=== PATIENT | female | born 1945 | race Caucasian/White ===

== ENCOUNTER 2019-04-12 02:41 | Outpatient (CLI) | payer MEDICARE, SELFPAY ==
[2019-04-12 08:35] LABS: HCT 37.7 % (36.0-46.0); HGB 12.9 g/dL (12.0-15.5); Mean Corp. HGB Concentration 34.2 g/dL (32.0-36.0); Mean Corpuscular Hemoglobin 29.4 pg (27.0-33.0); Mean Corpuscular Volume 85.9 fL (80-95); Mean Platelet Volume 11.1 fL (8.0-11.0); Platelet Count 221 x1000/uL (130-400); RBC 4.39 m/cumm (4.00-5.20); RBC Distribution Width 14.1 % (11.7-14.6)
[2019-04-12 09:53] LABS: ALT 20 U/L (14-59); AST 17 U/L (15-37); Albumin 3.5 g/dL (3.4-5.0); Alkaline Phosphatase 66 U/L (46-116); Anion Gap 7.1 mmol/L (3-11); BUN 19 mg/dL (7-18); Bilirubin, Total 0.5 mg/dL (0.2-1.0); CO2 32.9 mmol/L (21.0-32.0); CREATININE 0.82 mg/dL (0.55-1.02); Calculated LDL 108 mg/dL; Chloride 101 mmol/L (98-107); Cholesterol 197 mg/dL (50-200); Glucose 96 mg/dL (70-100); HDL Cholesterol 75 mg/dL (40-60); Potassium 3.8 mmol/L (3.5-5.1); Sodium 141 mmol/L (136-145); TSH (W/Ref FT4) 2.68 uIU/mL (0.36-3.74); Total Protein 6.9 g/dL (6.4-8.2); Triglyceride 71 mg/dL (30-150)
[2019-04-12 10:02] LABS: Vitamin D 25 Total 97.6 ng/ml (30-100)
== END 2019-04-12 03:01 ==
PROVIDERS: PCP Student in an Organized Health Care Education/Training Program; Visit Provider Student in an Organized Health Care Education/Training Program
DX: R53.83 Other fatigue (principal); Z86.2 Personal history of diseases of the blood and blood-forming organs and certain disorders involving the immune mechanism; I10 Essential (primary) hypertension; M85.80 Other specified disorders of bone density and structure, unspecified site; M25.551 Pain in right hip; S42.309A Unspecified fracture of shaft of humerus, unspecified arm, initial encounter for closed fracture; E03.9 Hypothyroidism, unspecified; Z13.220 Encounter for screening for lipoid disorders
CPT/HCPCS: 36415; 80053; 80061; 82306; 85027; 84443

== ENCOUNTER 2019-05-26 00:38 | Outpatient (CLI) | payer MEDICARE, SELFPAY ==
--- NOTE | 2019-05-26 07:12 | DI.US_ITS ---
APPROVED REPORT EXAM: Comprehensive 2D, Doppler, and color-flow Echocardiogram Patient Location: Out-Patient Adz Worker: Nikole Bolanso [facility] ([facility]) Rhythm: Bradycardia Indications: edema r06.9, palpitations r00.2 hypertension i10 Conclusion Left Ventricle : The left ventricle is normal size. The left ventricular systolic function is normal. Mild left ventricular hypertrophy There is normal LV segmental wall motion. LVEF is 60-65%. There is grade 2 diastolic dysfunction. Right Ventricle : The right ventricle appears top normal size. The right ventricular systolic functio n is normal. Atria : The left atrium size is top normal to mildly dialted. The right atrium size is normal. Aortic Valve : Aortic valve is trileaflet. The Aortic valve is sclerotic with focal thickening. Trvia l aortic regurgitation by color doppler. sclerosis without stenosis Mitral Valve : Mitral valve leaflets are mildly thickened. Mild mitral regurgitation. No evidence of mitral valve stenosis. Tricuspid Valve : Tricuspid valve leaflets are mildly thickened but open well. Mild tricuspid regurgi tation. Great Vessels : The aortic root is normal in size. IVC is normal in size and collapses >50% with insp iration. Estimated RVSP is 32-36 mmHg. There is no prior echocardiogram available for comparison. Wall motion Left Ventricle The left ventricle is normal size. The left ventricular systolic function is normal. Mild left ventri cular hypertrophy There is normal LV segmental wall motion. There is grade 2 diastolic dysfunction. L VEF is 60-65%. Right Ventricle The right ventricle appears top normal size. The right ventricular systolic function is normal. Atria The left atrium size is mildly dialted. The right atrium size is normal. Aortic Valve Aortic valve is trileaflet. The Aortic valve is sclerotic with focal thickening. sclerosis without st enosis Trvial aortic regurgitation by color doppler. Mitral Valve Mitral valve leaflets are mildly thickened. No evidence of mitral valve stenosis. Mild mitral regurgi tation. Tricuspid Valve Tricuspid valve leaflets are mildly thickened but open well. Mild tricuspid regurgitation. Great Vessels The aortic root is normal in size. IVC is normal in size and collapses >50% with inspiration. Estimat ed RVSP is 32-36 mmHg. Pericardium There is no pericardial effusion. 2D Dimensions IVSd 1.30 cm F: 0.6-1.0 LV EDV A2C 73.60 mL PWd 1.15 cm F: 0.6 - 1.0 LV EDV A4C 84.60 mL LVDd 4.25 cm F: 3.8 - 5.2 LA Volume Index A2C 36.89 mL/m2 LVDs 2.45 cm F: 2.2 - 3.5 LA Volume Index A4C 30.37 mL/m2 Aortic Root 2.70 cm F: 2.7 - 3.3 LA Volume Index Biplane 36.65 mL/m2 RA Area A4C 14.46 cm2 LA Area A4C 16.55 cm2 LVOT 1.90 cm (M/F) 1.5-2.5 LA Area A2C 19.98 cm2 Ascending Aorta 3.09 cm F: 2.3 - 3.1 EF AP4 66.19 % LVEF (Teich) 72.66 % EF AP2 71.88 % LVEF (Horta's) 68.42 % F: 54 - 74 EF BP 68.42 % LV Volume 62.18 mL F: 46 - 106 LV Volume Index 35.94 mL/m2 F: 29 - 61 FS 41.40 % LV Diastology E/A Ratio 1.2 MED E' 0.05 (>0.07 m/s) LV E/e MED 21.25 (<14) LAT E' 0.06 (>0.1 m/s) LV E/e LAT 15.60 (<14) Pulm Vein s 0.41 m/s PV S/D Ratio 0.78 Pulm Vein d 0.52 m/s Pulm Vein a 0.31 m/s Aortic Valve LVOT Area 2.94 cm2 LVOT Peak Olvin. 0.80 m/s LVOT Mean Olvin. 0.55 m/s LVOT Peak Gr. 2.80 mmHg LATHA Vmax Index 0.95 cm2/m2 LVOT Mean Gr. 1.35 mmHg LVOT VTI 0.20 m LATHA Mean Olvin. Index 0.79 cm2/m2 AoV Peak Olvin. 1.50 (0.5-1.3 m/s) AoV Mean Olvin. 1.17 m/s AO Peak GR. 8.99 mmHg AO Mean GR. 5.77 (<5 mmHg) VTI Ratio 0.58 LATHA (VTI) 1.70 (2.5-4.5 cm2) LATHA (VTI) Index 0.98 cm/m2 Mitral Valve MV E Max Olvin. 0.98 (0.4-1.3 m/s) MV A Velocity 0.80 (0.4-1.3 m/s) E/A Ratio 1.16 MV Decel. Time 170.75 (160-240 msec) MV PHT 49.53 msec MVA PHT 4.40 cm2 Tricuspid Valve TR P. Velocity 2.85 m/s TV Regurg Vmax 2.85 m/s RAP Estimate 3.00 mmHg RVSP 35.50 mmHg TR P. Gradient 32.50 mmHg
== END 2019-05-26 00:58 ==
PROVIDERS: PCP Student in an Organized Health Care Education/Training Program; Visit Provider Student in an Organized Health Care Education/Training Program
DX: R00.2 Palpitations (principal); I10 Essential (primary) hypertension; R60.0 Localized edema; I51.7 Cardiomegaly; I50.1 Left ventricular failure, unspecified
CPT/HCPCS: 93306

== ENCOUNTER 2020-01-05 04:19 | Outpatient (CLI) | payer MEDICARE, SELFPAY ==
[2020-01-05 07:48] LABS: HCT 38.9 % (36.0-46.0); HGB 12.7 g/dL (12.0-15.5); Mean Corp. HGB Concentration 32.6 g/dL (32.0-36.0); Mean Corpuscular Hemoglobin 28.2 pg (27.0-33.0); Mean Corpuscular Volume 86.3 fL (80-95); Mean Platelet Volume 10.9 fL (8.0-11.0); Platelet Count 220 x1000/uL (130-400); RBC 4.51 m/cumm (4.00-5.20); RBC Distribution Width 14.6 % (11.7-14.6); White Blood Cell Count 5.82 k/cumm (4.4-10.8)
[2020-01-05 08:55] LABS: ALT 26 U/L (14-59); AST 19 U/L (15-37); Albumin 3.5 g/dL (3.4-5.0); Alkaline Phosphatase 54 U/L (46-116); Anion Gap 6.6 mmol/L (3-11); BUN 21 mg/dL (7-18); Bilirubin, Total 0.4 mg/dL (0.2-1.0); CO2 32.4 mmol/L (21.0-32.0); CREATININE 0.89 mg/dL (0.55-1.02); Calcium 8.9 mg/dL (8.5-10.1); Calculated LDL 129 mg/dL (<100); Chloride 101 mmol/L (98-107); Cholesterol 212 mg/dL (<200); Glucose 94 mg/dL (74-106); HDL Cholesterol 74 mg/dL (40-60); Potassium 3.6 mmol/L (3.5-5.1); Sodium 140 mmol/L (136-145); Total Protein 6.6 g/dL (6.4-8.2); Triglyceride 48 mg/dL (<150)
[2020-01-05 09:12] LABS: TSH (W/Ref FT4) 3.35 uIU/mL (0.36-3.74)
== END 2020-01-05 04:39 ==
PROVIDERS: PCP Student in an Organized Health Care Education/Training Program; Visit Provider Student in an Organized Health Care Education/Training Program
DX: I10 Essential (primary) hypertension (principal); E03.9 Hypothyroidism, unspecified; R09.89 Other specified symptoms and signs involving the circulatory and respiratory systems
CPT/HCPCS: 36415; 80053; 80061; 85027; 84443

== ENCOUNTER 2020-01-07 00:44 | Outpatient (CLI) | payer MEDICARE, SELFPAY ==
--- NOTE | 2020-01-07 07:00 | DI.US_ITS ---
EXAM: US CAROTID CLINICAL HISTORY: HX Bruit, r/o stenosis, RT CAROTID BRUIT, R09.89. TECHNIQUE: Ultrasound carotids performed using grayscale, color-flow, and spectral Doppler imaging. COMPARISON: No exams were available for comparison FINDINGS: RIGHT CAROTID ARTERY: Plaque: Minimal calcific plaque in the right bulb. Velocity elevation: None. LEFT CAROTID ARTERY: Plaque: Minimal. Velocity elevation: None. VERTEBRAL ARTERIES: Antegrade flow. Measurements: R Bulb: 50.1cm/s PS / 11.6cm/s ED R CCA: 81cm/s PS / 14.8cm/s ED R ECA: 79.1cm/s PS / 9.6cm/s ED R ICA Prox: 66.8cm/s PS /13.5cm/s ED R ICA Mid: 70.1cm/s PS / 18cm/s ED R ICA Distal: 78.4cm/s PS /19.3cm/s ED R Vert: 38.4cm/s PS / 8.9cm/s ED R SVR: 0.97 R DVR: 1.3 L Bulb: 59.4cm/s PS /10cm/s ED L CCA: 76.8cm/s PS / 15.8cm/s ED L ECA: 84.7cm/s PS /14.7cm/s ED L ICA Prox:73.6cm/s PS / 13.1cm/s ED L ICA Mid: 73.6cm/sPS / 18.9cm/s ED L ICA Distal: 79.4cm/s PS / 18.9cm/s ED L Vert: 44.7cm/s PS / 11cm/s ED L SVR: 1.03 L DVR: 1.2 Note is made of a 1.4 x 0.9 x 1.3 cm nodule in the left lobe of the thyroid gland. Nonemergent thyro id ultrasound may be obtained for further evaluation. IMPRESSION: No evidence for hemodynamically significant carotid stenosis. Criteria for Carotid Stenosis: Normal: ICA PSV <125 cm/s no plaque or intimal thickening is visible. <50% stenosis: ICA PSV <125 cm/s and plaque or intimal thickening is visible. 50-69% stenosis: ICA PSV is 125-250 cm/s and plaque is visible. >70% stenosis to near occlusion: ICA PSV >250 cm/s with visible plaque and luminal narrowing. DATA REPOSITORY:
== END 2020-01-07 01:04 ==
PROVIDERS: PCP Student in an Organized Health Care Education/Training Program; Visit Provider Student in an Organized Health Care Education/Training Program
DX: R09.89 Other specified symptoms and signs involving the circulatory and respiratory systems (principal); E04.1 Nontoxic single thyroid nodule
CPT/HCPCS: 93880

== ENCOUNTER 2020-02-10 01:18 | Outpatient (CLI) | payer MEDICARE, SELFPAY ==
--- NOTE | 2020-02-10 12:28 | DI.MAMMO_ITS ---
EXAM: MAMMO SCREENING CLINICAL HISTORY: screening,Z12.39 TECHNIQUE: Mammograms were interpreted according to the usual protocol including computer analysis w [employer] CAD system, tomosynthesis and C-view imaging. COMPARISON: 2010 through 2012. FINDINGS: The breasts are composed of heterogeneously dense fibroglandular densities, Breast Density category C . No suspicious masses or suspicious microcalcifications are seen. There is scarring related to previo us surgery. Vascular calcifications are seen. No skin thickening or abnormal axillary lymph nodes are seen. There has been no significant change from prior exams. IMPRESSION: BI-RADS Category 2 - Benign Findings Yearly screening mammography is recommended. Breast Density Category C, heterogeneously dense tissue which decreases the sensitivity of the mammog rudy. The mammogram demonstrates the patient's breast tissue is dense. Dense breast tissue is very common a nd is not abnormal but dense breast tissue can make it harder to find cancer on a mammogram. Also, de nse breast tissue may increase breast cancer risk. This information about the result of the mammogram report was provided to the patient to raise their awareness. Use this report when you speak with the patient about their risks for breast cancer, which includes their family history. At that time, you may recommend additional screening tests (Ultrasound or MRI) as they might be useful based on their r isk. A negative radiographic report should not delay biopsy if a dominant or clinically suspicious mass is present. Up to ten percent of cancers are not identified on mammography. A negative report may reinforce clinical impression. Adenosis and dense breasts may obscure an underlying neoplasm. False positive reports average 6 to 10%.
== END 2020-02-10 01:38 ==
PROVIDERS: PCP Student in an Organized Health Care Education/Training Program; Visit Provider Student in an Organized Health Care Education/Training Program
DX: Z12.31 Encounter for screening mammogram for malignant neoplasm of breast (principal); R92.1 Mammographic calcification found on diagnostic imaging of breast; R92.2 Inconclusive mammogram
CPT/HCPCS: 77063; 77067

== ENCOUNTER → 2020-05-23 09:39 | Outpatient (BNVA) | payer MEDICARE, SELFPAY | PROVIDERS: PCP Student in an Organized Health Care Education/Training Program; Referring Provider Student in an Organized Health Care Education/Training Program; Visit Provider Psychiatry & Neurology Neurology | DX: R26.89 Other abnormalities of gait and mobility (principal); I10 Essential (primary) hypertension | CPT/HCPCS: 99203 ==

== ENCOUNTER → 2020-05-25 13:39 | Outpatient (BNVA) | payer MEDICARE, SELFPAY | PROVIDERS: PCP Student in an Organized Health Care Education/Training Program; Referring Provider Student in an Organized Health Care Education/Training Program; Visit Provider Internal Medicine Cardiovascular Disease | DX: R00.1 Bradycardia, unspecified (principal); E78.5 Hyperlipidemia, unspecified; I10 Essential (primary) hypertension | CPT/HCPCS: 99203; 99214 ==

== ENCOUNTER → 2020-06-09 12:27 | Outpatient (BNVA) | payer MEDICARE, SELFPAY | PROVIDERS: PCP Student in an Organized Health Care Education/Training Program; Referring Provider Student in an Organized Health Care Education/Training Program; Visit Provider Internal Medicine Cardiovascular Disease | DX: I10 Essential (primary) hypertension (principal); Z79.899 Other long term (current) drug therapy | CPT/HCPCS: 99214; 99213 ==

== ENCOUNTER → 2020-07-21 12:34 | Outpatient (BNVA) | payer MEDICARE, SELFPAY | PROVIDERS: PCP Student in an Organized Health Care Education/Training Program; Referring Provider Student in an Organized Health Care Education/Training Program; Visit Provider Internal Medicine Cardiovascular Disease | DX: I10 Essential (primary) hypertension (principal) | CPT/HCPCS: 99213 ==

== ENCOUNTER 2020-10-19 03:15 | Outpatient (CLI) | payer MEDICARE, OTHER, SELFPAY ==
[2020-10-19 10:33] LABS: ALT 26 U/L (14-59); AST 17 U/L (15-37); Albumin 3.8 g/dL (3.4-5.0); Alkaline Phosphatase 89 U/L (46-116); Anion Gap 6.7 mmol/L (3-11); BUN 17 mg/dL (7-18); Bilirubin, Total 0.5 mg/dL (0.2-1.0); CO2 31.3 mmol/L (21.0-32.0); CREATININE 0.9 mg/dL (0.55-1.02); Calcium 8.7 mg/dL (8.5-10.1); Calculated LDL 144 mg/dL (<100); Chloride 106 mmol/L (98-107); Cholesterol 239 mg/dL (<200); Glucose 95 mg/dL (74-106); HDL Cholesterol 84 mg/dL (40-60); Sodium 144 mmol/L (136-145); Total Protein 7.2 g/dL (6.4-8.2); Triglyceride 56 mg/dL (<150)
== END 2020-10-19 03:16 | disposition home or self-care (01) ==
LOC: LBO 03:15
PROVIDERS: PCP Student in an Organized Health Care Education/Training Program; Visit Provider Student in an Organized Health Care Education/Training Program
DX: R06.00 Dyspnea, unspecified (principal); I10 Essential (primary) hypertension; E78.5 Hyperlipidemia, unspecified
CPT/HCPCS: 36415; 80053; 80061; 84443; 99213

== ENCOUNTER 2020-10-24 00:57 | Outpatient (CLI) | payer MEDICARE, OTHER, SELFPAY ==
--- NOTE | 2020-10-24 07:15 | DI.NM_ITS ---
APPROVED REPORT Exam: Exercise Treadmill Patient Location: Out-Patient Room/Bed: Stress Nurse: Blaire Salas RN Ordering Provider:AURY WETZEL, Contact Number: BMI: 29.99 Baseline Rhythm: Sinus Bradycardia Indications: Dyspnea on exertion Medical History Medical History: LIN, HTN, HLD, Hypothyroidism, Osteopenia, R carotid bruit, SPENCE, Bradycardia Cardiac Medications: Metoprolol succinate, Magnesium, Lisinopril, Furosemide, Aspirin, Amlodipine Allergies: No known drug allergies Cardiac Risk Factors: FHX of CAD, HTN, Hyperlipidemia Previous Cardiac Procedures: None Pretest Chest Pain Characteristics: No chest pain Exercise History: Physically active Physical Disabilities: None Lung Sounds: Clear to auscultation Heart Sounds: Regular Stress Test Details Test: Exercise stress testing was performed using a Ramesh protocol. Nuclear Acquisition: Rest Tc-99m/Stress Tc-99m 1 day Rest Isotope: Tc-99m Sestamibi. Dose: 11.1 Date: 10/24/20 Injection Time: 1130 Stress Isotope: Tc-99m Sestamibi. Dose: 36.0 Date: 10/24/20 Injection Time: 1330 HR Resting HR Supine: 55 bpm Max Heart Rate (APMHR): 145.684970 bpm Resting HR Standin bpm Target HR (85% APMHR): 123.011243 bpm Max HR Achieved: 136 bpm % of APMHR: 93.79 Recovery HR: 74 bpm HR response to stress: Normal HR response to stress Comment: Beta jo ann not held. BP Resting BP Supine: 130/80 mmHg Resting BP Standin/76 mmHg Max BP: 186/74 mmHg Recovery BP: 150/78 mmHg BP response to stress: Normal blood pressure response to stress. ECG Resting ECG: Sinus Bradycardia Ectopy: PVCs Stress ECG: Sinus Tachycardia ST Change: No significant ST segment changes noted Arrhythmia: multifocal PVCs, PVC couplets Recovery ECG: Sinus Rhythm Recovery ST Change: No significant ST segment changes noted, , No significant ST segment changes note d Recovery Arrhythmia: PACs, multifocal PVCs Clinical Reason for Termination: Fatigue Stress Symptoms: Leg Fatigue Exercise duration: 9 min0 sec Highest Stage Reached: Stage 3: 3.4 mph at 14% grade. Exercise capacity: 10.16 METs Rate Pressure Product: [id number] Stress ECG Conclusion 1. The resting electrocardiogram was normal 2. Patient exercised on the Ramesh protocol and completed stage III, a workload of 10.16 METS limited by leg fatigue 3. Heart rate and blood pressure response to exercise. The patient achieved 93% of predicted heart r ate for age 4. Echocardiographically there was no evidence of myocardial ischemia 5. PVCs and PACs were noted Stress Test Summary STAGE Time (mins) Speed (mph) Grade (%) HR BP SYMPTOMS METS Supine 55 130/80 Standing 64 128/76 1 3 1.7 10 103 158/80 4.6 2 6 2.5 12 115 174/76 7 3 9 3.4 14 133 10.2 1 min recovery 111 186/74 3 min recovery 77 172/78 6 min recovery 74 150/78 MPI Conclusion Normal myocardial perfusion without evidence of ischemia or prior infarction EF 64% Radiologist Interpretation Radiologist agrees with Transit Survey Worker's Interpretation. Radiologist Interpretation by: Vida Savage MD Interpretation Date/Time: 10/27/2020 11:57:51
== END 2020-10-24 01:17 ==
PROVIDERS: PCP Student in an Organized Health Care Education/Training Program; Visit Provider Internal Medicine Cardiovascular Disease
DX: R06.09 Other forms of dyspnea (principal); Z82.49 Family history of ischemic heart disease and other diseases of the circulatory system; I10 Essential (primary) hypertension; E78.5 Hyperlipidemia, unspecified; I49.3 Ventricular premature depolarization; I49.1 Atrial premature depolarization
CPT/HCPCS: 78452; 93016; 93018; 93017

== ENCOUNTER → 2020-10-26 13:43 | Outpatient (BNVA) | payer MEDICARE, OTHER, SELFPAY | PROVIDERS: PCP Student in an Organized Health Care Education/Training Program; Referring Provider Student in an Organized Health Care Education/Training Program; Visit Provider Internal Medicine Cardiovascular Disease | DX: R06.09 Other forms of dyspnea (principal); E78.5 Hyperlipidemia, unspecified; I10 Essential (primary) hypertension | CPT/HCPCS: 99442; 99213 ==

== ENCOUNTER 2021-03-22 03:02 | Outpatient (CLI) | payer MEDICARE, OTHER, SELFPAY ==
[2021-03-22 10:26] LABS: Anion Gap 5.5 mmol/L (3-11); BUN 19 mg/dL (7-18); CO2 30.5 mmol/L (21.0-32.0); CREATININE 0.8 mg/dL (0.55-1.02); Calcium 8.7 mg/dL (8.5-10.1); Chloride 107 mmol/L (98-107); Glucose 101 mg/dL (74-106); Sodium 143 mmol/L (136-145); TSH (W/Ref FT4) 0.33 uIU/mL (0.36-3.74)
[2021-03-22 10:46] LABS: FREE T4 1.33 ng/dL (0.76-1.46)
== END 2021-03-22 03:03 | disposition home or self-care (01) ==
LOC: LBO 03:02
PROVIDERS: PCP Student in an Organized Health Care Education/Training Program; Visit Provider Student in an Organized Health Care Education/Training Program
DX: E03.9 Hypothyroidism, unspecified; E87.8 Other disorders of electrolyte and fluid balance, not elsewhere classified; G47.62 Sleep related leg cramps
CPT/HCPCS: 36415; 80048; 84439; 84443

== ENCOUNTER 2021-04-16 10:51 | Outpatient (CLI) | payer MEDICARE, OTHER, SELFPAY ==
--- NOTE | 2021-04-16 10:15 | DI.RAD_ITS ---
Exam(s) XR KNEE RT 3V AP,LAT,MOISES EXAM: XR KNEE RT 3V AP,LAT,MOISES CLINICAL HISTORY: RIGHT KNEE PAIN TECHNIQUE: COMPARISON: CR RIGHT KNEE 3 VIEWS from 01/11/2009 FINDINGS: Three views were obtained. There is severe narrowing of the medial tibiofemoral cartilaginous joint space. There is subchondral sclerosis and marginal osteophyte formation of the adjacent bones. Othe rwise the joints of the knee appear fairly well maintained with slight marginal osteophyte formation of the patellofemoral joint and lateral tibiofemoral joint. IMPRESSION: Severe DJD medial tibiofemoral joint. RADIATION DOSE DELIVERED: Total DLP
== END 2021-04-16 10:52 | disposition home or self-care (01) ==
LOC: DIORS 10:52
PROVIDERS: PCP Student in an Organized Health Care Education/Training Program; Referring Provider Student in an Organized Health Care Education/Training Program; Visit Provider Student in an Organized Health Care Education/Training Program
DX: M17.11 Unilateral primary osteoarthritis, right knee (principal); M25.561 Pain in right knee
CPT/HCPCS: 73562; 99213

== ENCOUNTER 2021-04-19 01:55 | Outpatient (CLI) | payer MEDICARE, OTHER, SELFPAY ==
--- NOTE | 2021-04-19 08:00 | DI.DEXA_ITS ---
Exam(s) XR DEXA BONE DENSITY W/WO MARIELLE EXAM: XR DEXA BONE DENSITY W/WO MARIELLE CLINICAL HISTORY: OSTEOPENIA,M81.0,AT RISK FOR OSTEOPOROSIS TECHNIQUE: COMPARISON: No exams were available for comparison FINDINGS: DEXA scan was performed according to the usual protocol. Please see the accompanying data sheets. Left hip scanning shows T-score -0.9 with left femoral neck T-score -1.8. Lumbar spine scanning shows T-score -1.1. Left forearm scanning shows T-score 0.4. IMPRESSION: Findings are consistent with osteopenia according to the WHO criteria. The lateral vertebral scanogram shows no evidence of a vertebral compression fracture. RADIATION DOSE DELIVERED: Total DLP
== END 2021-04-19 02:15 ==
PROVIDERS: PCP Student in an Organized Health Care Education/Training Program; Visit Provider Student in an Organized Health Care Education/Training Program
DX: M85.88 Other specified disorders of bone density and structure, other site; Z91.89 Other specified personal risk factors, not elsewhere classified
CPT/HCPCS: 77080

== ENCOUNTER → 2021-04-26 13:49 | Outpatient (BNVA) | payer MEDICARE, OTHER, SELFPAY | PROVIDERS: PCP Student in an Organized Health Care Education/Training Program; Referring Provider Student in an Organized Health Care Education/Training Program; Visit Provider Internal Medicine Cardiovascular Disease | DX: Z01.810 Encounter for preprocedural cardiovascular examination (principal); M17.11 Unilateral primary osteoarthritis, right knee; I10 Essential (primary) hypertension | CPT/HCPCS: 99213 ==

== ENCOUNTER 2021-06-21 15:14 | Outpatient (CLI) | payer MEDICARE, OTHER, SELFPAY ==
--- NOTE | 2021-06-21 13:15 | DI.RAD_ITS ---
Exam(s) XR STANDING ALIGNMENT EXAM: XR STANDING ALIGNMENT CLINICAL HISTORY: PRE OP R TKA. TECHNIQUE: 2D digital imaging was performed. COMPARISON: CR XR KNEE RT 3V AP,LAT,MOISES from 04/16/2021 CR XR KNEE RT 3V AP,LAT,MOISES from 04/16/2021 FINDINGS: There is moderate narrowing of the medial compartment of the right knee with preservation of height o f the lateral compartment. Opposite-left knee appears unremarkable. Both hips appear unremarkable. Ankles unremarkable. No osseous lesions IMPRESSION: Moderate narrowing medial compartment right knee. DATA REPOSITORY: RADIATION DOSE DELIVERED:
--- NOTE | 2021-06-21 13:15 | DI.RAD_ITS ---
Exam(s) XR KNEE RT 1V EXAM: XR KNEE RT 1V CLINICAL HISTORY: pre op R TKA. TECHNIQUE: 2D digital imaging was performed. COMPARISON: CR XR KNEE RT 3V AP,LAT,MOISES from 04/16/2021 FINDINGS: Single lateral weight-bearing right compared 04/16/2021 Fracture. Small amount of joint fluid again noted. Xavs-hv-dhyx narrowing of the medial noted. Lat eral compartment normal. Mild-moderate degenerative changes patellofemoral. No osseous lesions. IMPRESSION: DATA REPOSITORY: RADIATION DOSE DELIVERED:
== END 2021-06-21 15:15 | disposition home or self-care (01) ==
LOC: DIORS 15:15
PROVIDERS: PCP Student in an Organized Health Care Education/Training Program; Referring Provider Student in an Organized Health Care Education/Training Program; Visit Provider Physician Assistant
DX: Z01.818 Encounter for other preprocedural examination (principal); M17.11 Unilateral primary osteoarthritis, right knee
CPT/HCPCS: 73560; 77073

== ENCOUNTER 2021-07-02 03:40 | Outpatient (CLI) | payer MEDICARE, OTHER, SELFPAY ==
[2021-07-02 10:14] LABS: HCT 38.3 % (36.0-46.0); HGB 12.3 g/dL (11.2-15.7); MCH 27.7 pg (27.0-33.0); MCHC 32.1 % (32.0-36.0); MCV 86.3 fL (80-95); MPV 10.8 fL (8.0-11.0); Platelet Count 244 10^3/uL (130-400); RBC 4.44 10^6/uL (3.93-5.22); RDW-SD 47.9 fL; WBC 7.22 10^3/uL (4.4-10.8)
[2021-07-02 10:21] LABS: Bilirubin Negative (Negative); Blood Negative (Negative); Clarity Clear (Clear); Glucose Negative (Negative); Ketones Negative (Negative); Leukocyte Esterase Negative (Negative); Nitrite Negative (Negative); Urobilinogen 0.2 EU/dL (Up TO 0.2); pH 5.5 (5-8)
[2021-07-02 10:49] LABS: Anion Gap 7.8 mmol/L (3-11); BUN 16 mg/dL (7-18); CO2 30.2 mmol/L (21.0-32.0); CREATININE 0.8 mg/dL (0.55-1.02); Calcium 8.8 mg/dL (8.5-10.1); Chloride 103 mmol/L (98-107); Glucose 80 mg/dL (74-106); Potassium 3.9 mmol/L (3.5-5.1); Sodium 141 mmol/L (136-145)
== END 2021-07-02 03:41 | disposition home or self-care (01) ==
LOC: LBO 03:40
PROVIDERS: Nurse Practitioner; PCP Student in an Organized Health Care Education/Training Program; Visit Provider Student in an Organized Health Care Education/Training Program
DX: R79.89 Other specified abnormal findings of blood chemistry (principal); M17.11 Unilateral primary osteoarthritis, right knee; Z01.818 Encounter for other preprocedural examination; R30.0 Dysuria; R35.0 Frequency of micturition; R39.15 Urgency of urination
CPT/HCPCS: 36415; 80048; 85027; 81003; 84443

== ENCOUNTER 2021-07-02 04:04 | Outpatient (CLI) | payer MEDICARE, OTHER, SELFPAY ==
[2021-07-02 14:35] LABS: Source Nasal/Nares
[2021-07-02 18:17] LABS: COVID-19 PCR Negative (Negative)
== END 2021-07-02 04:05 | disposition home or self-care (01) ==
LOC: LBO 04:04
PROVIDERS: PCP Student in an Organized Health Care Education/Training Program; Visit Provider Student in an Organized Health Care Education/Training Program
DX: Z20.822 Contact with and (suspected) exposure to COVID-19 (principal)
CPT/HCPCS: 36415; 80048; 85027; 87635; 81003; 84443

== ENCOUNTER 2021-07-03 07:28 | Day surgery (SDC) | payer MEDICARE, OTHER, SELFPAY ==
[2021-07-03] VITALS (8 sets, daily range): BP systolic 144–174; BP diastolic 59–87; PULSE 46–64; RESP 14–20; TEMP 35.9–36.8; O2SAT 97–100; BMI 29.7
--- NOTE | 2021-07-03 06:48 | PDOC.DSDIS_ITS ---
Discharge Plan Disposition Patient Disposition: HOME Condition: Stable Discharge Details Reason For Visit: Right TKA Attending Provider: Edward Kirby Primary Care Provider: Amalia Ventura Home Meds and New Rx's Prescriptions: New celecoxib [Celebrex] 200 mg capsule 200 mg PO BID Qty: 60 RF: 0 aspirin 81 mg tablet,delayed release (DR/EC) 81 mg PO BID Qty: 60 RF: 0 pantoprazole [Protonix] 40 mg tablet,delayed release (DR/EC) 40 mg PO DAILY Qty: 30 RF: 0 gabapentin 300 mg capsule 300 mg PO QHS Qty: 14 RF: 0 acetaminophen 500 mg capsule 1,000 mg PO Q8H PRN PRNQty: 90 RF: 0 oxycodone 5 mg tablet 5 mg PO Q4H PRNQty: 18 RF: 0 Continued cholecalciferol (vitamin D3) 5,000 unit capsule 5,000 unit PO DAILY RF: 0 magnesium 200 mg tablet 165 mg PO BID RF: 0 furosemide 20 mg tablet 20 mg PO DAILY Qty: 90 RF: 3 lisinopril 40 mg tablet 40 mg PO DAILY Qty: 90 RF: 3 metoprolol succinate 25 mg tablet extended release 24 hr 25 mg PO DAILY Qty: 90 RF: 3 amlodipine 5 mg tablet 5 mg PO BID Qty: 180 RF: 3 levothyroxine 88 mcg tablet See Rx Instructions PO DAILY RF: 0 Discontinued aspirin 81 mg tablet,delayed release (DR/EC) 81 mg PO DAILY RF: 0 Discharge Instructions Additional Instructions: Total Knee Discharge Instructions Activity: The most important activity is to walk. You should try to take short walks a few times a day. It is important that when resting you work on keeping the knee straight. Avoid putting a pillow behind the knee as this will encourage flexion. Work on range of motion exercises as provided by Physical Therapy. [If you have the [employer] bike coming, this will be your primary tool for exercise after the knee replacement. You should use it and follow the directions for the knee. Utilize the other exercises sparingly based on your symptoms.] - Start outpatient physical therapy within 2 weeks. - You should wear the ARI hose on both legs for 2 weeks. You may remove these at night. You may also use any compression sock in place of the ARI hose. - Utilize [employer] to review exercises, see videos on exercises and obtain basic information pertaining to your surgery and your recovery. Dressing: Remove the Hudson wrap by 2 days after your surgery and put on the ARI stocking given to you from the hospital. Keep the surgical dressing (underneath the HUDSON wrap) in place for at least one week. After the first week it may be removed and replaced with light gauze and tape or nothing. The wound and dressing may get wet after 3 days but avoid soaking the dressing or otherwise it will need to be changed. Many people prefer covering the dressing with cling wrap (saran wrap) to minimize it from getting soaked. If it gets wet, just pat dry. If it starts to peel off then it will need to be changed. Medications: - You should take Tylenol and anti-inflammatory Celebrex as your primary pain control medications. If the Celebrex is too expensive or not covered, please call the office for another alternative (Advil/Ibuprofen or Naproxen/Aleve) - You have been prescribed a stronger pain medication Oxycodone for breakthrough pain, take as needed as prescribed. - You have also been prescribed a stomach acid reduction agent Pantoprozole to help reduce stomach acid and reflux. - You have been prescribed Gabapentin to take at night for restlessness and nerve pain. - You will be taking [Aspirin 81mg twice a day] for DVT prevention unless instructed otherwise. - If you have constipation you should take Colace or Miralax (both ipen-hws-elpysha). It takes most people 3-4 days to have a bowel movement. Follow-up: 2 weeks If you have any acute concerns or questions, please do not hesitate to contact the office at [phone]. You may contact Dr. Kirby with any questions after hours through the hospital at [phone] or on his cell phone at [phone]. Referrals: Edward Kirby MD [ [facility] STAFF PHYSICIAN] - Equipment/Supplies: Walker Activity:: Activity as Tolerated Remove Dressings/Wound Care:: Do Not Remove Shower/Bathe:: 72 hours Diet:: As Tolerated Discharge Orders Discharge Orders: Discharge Order (Routine); Ordered 07/03/21 Ordered By: Alison Hamilton DS: Diagnosis Discharge Diagnosis (1) Degenerative joint disease of right knee: Status: Chronic
--- NOTE | 2021-07-03 08:01 | ANES.PREOP_ITS ---
General Info Date of Service Date Performed: 07/03/21 Height: 5 ft 2 in Weight: 73.9 kg Body Mass Index (BMI): 29.7 Surgical Procedure: Operation Date: 07/03/21 09:40 Proposed Procedures Side Surgeon p (R) Knee Total Arthroplasty Right Edward Kirby MD Meds Allergies and Home Medications Allergies Allergy/AdvReac Type Severity Reaction Status Date / Time No Known Allergies Allergy Verified 07/03/21 07:37 Home Medication Medication Instructions Recorded cholecalciferol (vitamin D3) 125 5,000 unit PO DAILY 04/14/19 mcg (5,000 unit) capsule amlodipine 5 mg tablet 5 mg PO BID #180 tab 05/25/21 furosemide 20 mg tablet 20 mg PO DAILY #90 tab 05/25/21 lisinopril 40 mg tablet 40 mg PO DAILY #90 tab 05/25/21 metoprolol succinate 25 mg 25 mg PO DAILY #90 tab 05/25/21 tablet,extended release 24 hr levothyroxine 88 mcg tablet See Rx Instructions PO DAILY 06/21/21 tab-cap magnesium 200 mg tablet 165 mg PO BID tab 06/21/21 acetaminophen 1,000 mg PO Q8H PRN PRN #90 cap 07/03/21 aspirin 81 mg PO BID #60 tab 07/03/21 celecoxib [Celebrex] 200 mg PO BID #60 cap 07/03/21 gabapentin 300 mg PO QHS #14 cap 07/03/21 oxycodone 5 mg PO Q4H PRN #18 tab 07/03/21 pantoprazole [Protonix] 40 mg PO DAILY #30 tab 07/03/21 Current Visit Medications: Current Medications Generic Name Dose Route Start Last Admin Trade Name Freq PRN Reason Stop Dose Admin Acetaminophen 1,000 mg 07/03/21 06:00 Acetaminophen 500 Mg Tab PO 07/03/21 16:00 PREOP JUNG Acetaminophen 1,000 mg 07/03/21 14:00 Acetaminophen 500 Mg Tab PO TID JUNG Aspirin 81 mg 07/03/21 20:00 Aspirin E.C. 81 Mg Tabec PO BID [facility] [place] Celecoxib 400 mg 07/03/21 06:00 Celecoxib 200 Mg Cap PO 07/03/21 16:00 PREOP JUNG Celecoxib 200 mg 07/03/21 20:00 Celecoxib 200 Mg Cap PO BID [facility] [place] Gabapentin 300 mg 07/03/21 06:00 Gabapentin 300 Mg Cap PO 07/03/21 16:00 PREOP JUNG Gabapentin 300 mg 07/03/21 22:00 Gabapentin 300 Mg Cap PO HS JUNG Hydromorphone HCl 0.5 mg 07/03/21 06:47 Hydromorphone 2 Mg/Ml Vial IVP Q2H PRN PRN Tranexamic Acid 1,000 mg/ 60 mls @ 360 mls/hr 07/03/21 06:00 Sodium Chloride IVPB 07/03/21 16:00 PREOP JUNG Tranexamic Acid 1,000 mg/ 60 mls @ 360 mls/hr 07/03/21 06:00 Sodium Chloride IVPB 07/03/21 16:00 DIRECTED JUNG Ringer's Solution 1,000 mls @ 80 mls/hr 07/03/21 06:00 IV 08/01/21 23:59 INFUSION JUNG Cefazolin Sodium/Dextrose 2 gm in 50 mls @ 100 mls/hr 07/03/21 06:00 Ancef Duplex IVPB 07/03/21 16:00 PREOP JUNG Cefazolin Sodium/Dextrose 1 gm in 50 mls @ 100 mls/hr 07/03/21 16:00 Ancef Duplex IVPB 07/04/21 08:29 Q8H JUNG IV Miscellaneous Supplies 1 each 07/03/21 06:00 Iv Access IV 08/01/21 23:59 DIRECTED JUNG Ondansetron HCl 4 mg 07/03/21 06:47 Ondansetron 4 Mg/2 Ml Vial IVP Q6H PRN PRN Nausea Oxycodone HCl 0 mg 07/03/21 06:47 Oxycodone 5 Mg Tab PO Q3H PRN PRN Pain Pantoprazole Sodium 40 mg 07/04/21 07:30 Pantoprazole 40 Mg Tabcr PO DAILY@0730 JUNG Sodium Chloride 0 ml 07/03/21 06:00 Normal Saline Flush 10 Ml Syr IV 08/01/21 23:59 PRN PRN Sodium Chloride 0 ml 07/03/21 06:00 Normal Saline 10 Ml Vial IJ 08/01/21 23:59 DIRECTED PRN Sterile Water 0 ml 07/03/21 06:00 Water,Injection,Sterile 10 Ml Vial IJ 08/01/21 23:59 DIRECTED PRN PFSH Active Problems Active Problems: Problem Status Onset Code Degenerative joint disease of right knee M17.11 Thyroid nodule E04.1 Lesion of face L98.9 Fasciitis M72.9 Balance problem R26.89 Dizziness R42 Right knee pain M25.561 Dyspnea on exertion R06.00 Gait abnormality R26.9 Sleep related leg cramps G47.62 Obstructive sleep apnea (adult) (pediatric) G47.33 Urgency of urination R39.15 Closed fracture of humerus S42.309A Essential hypertension 03/29/13 I10 Hyperlipidemia 03/29/13 E78.5 Hypothyroidism 03/29/13 E03.9 Osteopenia M85.80 Fracture of shoulder 09/01/13 S42.90XA Right carotid bruit 09/01/13 R09.89 Medical History Medical History Bradycardia Surgical History Surgical History Cyst of Bartholin's gland History of bilateral cataract extraction (~2014) History of breast implant (~1966) History of breast implant removal (~2003) Tobacco Smoking/Tobacco Use Status: Never Alcohol Alcohol Intake: never Substance Use Substance use: Never Substance use type: does not use Vital Signs and Lab Results Vital Signs Most Recent Vital Signs in EMR: Most Recent Vital Signs Temp Pulse Resp BP Pulse Ox 36.3 C L 64 18 150/62 H 97 07/03/21 07:49 07/03/21 07:49 07/03/21 07:49 07/03/21 07:49 07/03/21 07:49 Lab Results Blood Type / Crossmatch: No Data to Display Complete Blood Count: White Blood Count 7.22 10^3/uL (4.4-10.8) 07/02/21 10:00 07/02/21 Red Blood Count 4.44 10^6/uL (3.93-5.22) 07/02/21 10:00 07/02/21 Hemoglobin 12.3 g/dL (11.2-15.7) 07/02/21 10:00 07/02/21 Hematocrit 38.3 % (36.0-46.0) 07/02/21 10:00 07/02/21 Platelet Count 244 10^3/uL (130-400) 07/02/21 10:00 07/02/21 Complete Metabolic Panel: Sodium Level 141 mmol/L (136-145) 07/02/21 10:00 07/02/21 Potassium Level 3.9 mmol/L (3.5-5.1) 07/02/21 10:00 07/02/21 Chloride Level 103 mmol/L (98-107) 07/02/21 10:00 07/02/21 Carbon Dioxide Level 30.2 mmol/L (21.0-32.0) 07/02/21 10:00 07/02/21 Blood Urea Nitrogen 16 mg/dL (7-18) 07/02/21 10:00 07/02/21 Creatinine 0.8 mg/dL (0.55-1.02) 07/02/21 10:00 07/02/21 Estimated GFR/1.73 m2 >= 60.00 (mL/min/1.73m2) 07/02/21 10:00 07/02/21 Calcium Level 8.8 mg/dL (8.5-10.1) 07/02/21 10:00 07/02/21 Glucose Level 80 mg/dL (74-106) 07/02/21 10:00 07/02/21 Liver Function Panel: No Data to Display Coagulation Panel: No Data to Display Cardiac Panel: No Data to Display Arterial Blood Gas: No Data to Display Venous Blood Gas: No Data to Display Pancreas Panel: No Data to Display Thyroid Panel: Thyroid Stimulating Hormone (TSH) 1.80 uIU/mL (0.36-3.74) 07/02/21 10:00 07/02/21 Infectious Disease: Coronavirus (COVID-19)(PCR) Negative (Negative) 07/02/21 10:57 07/02/21 Coronavirus 2019 Source Nasal/Nares 07/02/21 10:57 07/02/21 Blood Cultures: No Data to Display Toxicology Panel: No Data to Display Imaging and Studies Imaging and Studies Study information below may be from another EMR and interpreted by another provider. Please see original notes in EMR for more complete details. EKG Summary: DATE/TIME OF SERVICE: 05/25/20 1409 HR:64 bpm ECG Measurements Heart Rate 64 AXIS AR 159 P 69 QRSd 83 QRS 5 QT 420 T9 QTc 434 Conclusion Sinus rhythm...normal P axis, V-rate 50- 99 Stress Test Summary: Date of Exam: 10/24/20Sex: F Admission Date: 10/24/20 : 1945 Exam: Exercise Treadmill Indications: Dyspnea on exertion Stress ECG Conclusion 1. The resting electrocardiogram was normal 2. Patient exercised on the Ramesh protocol and completed stage III, a workload of 10.16 METS limited by leg fatigue 3. Heart rate and blood pressure response to exercise. The patient achieved 93% of predicted heart rate for age 4. Echocardiographically there was no evidence of myocardial ischemia 5. PVCs and PACs were noted Echocardiogram Summary: Date of Exam: 05/26/19Sex: F Admission Date: 05/26/19 : 1945 Indications: edema r06.9, palpitations r00.2 hypertension i10 Conclusion Left Ventricle : The left ventricle is normal size. The left ventricular systolic function is normal. Mild left ventricular hypertrophy There is normal LV segmental wall motion. LVEF is 60-65%. There is grade 2 diastolic dysfunction. Right Ventricle : The right ventricle appears top normal size. The right ventricular systolic function is normal. Atria : The left atrium size is top normal to mildly dialted. The right atrium size is normal. Aortic Valve : Aortic valve is trileaflet. The Aortic valve is sclerotic with focal thickening. Trvial aortic regurgitation by color doppler. sclerosis without stenosis Mitral Valve : Mitral valve leaflets are mildly thickened. Mild mitral regurgitation. No evidence of mitral valve stenosis. Tricuspid Valve : Tricuspid valve leaflets are mildly thickened but open well. Mild tricuspid regurgitation. Great Vessels : The aortic root is normal in size. IVC is normal in size and collapses >50% with inspiration. Estimated RVSP is 32-36 mmHg. There is no prior echocardiogram available for comparison. Carotid Artery Summary:: Date of Exam: 01/07/20 EXAM: US CAROTID CLINICAL HISTORY: HX Bruit, r/o stenosis, RT CAROTID BRUIT, R09.89. RIGHT CAROTID ARTERY: Plaque: Minimal calcific plaque in the right bulb. Velocity elevation: None. LEFT CAROTID ARTERY: Plaque: Minimal. Velocity elevation: None. VERTEBRAL ARTERIES: Antegrade flow. IMPRESSION: No evidence for hemodynamically significant carotid stenosis. Criteria for Carotid Stenosis: Normal: ICA PSV <125 cm/s no plaque or intimal thickening is visible. <50% stenosis: ICA PSV <125 cm/s and plaque or intimal thickening is visible. 50-69% stenosis: ICA PSV is 125-250 cm/s and plaque is visible. >70% stenosis to near occlusion: ICA PSV >250 cm/s with visible plaque and luminal narrowing. Anesthesia Assessment and Plan Anesthesia History Personal History: No History of General Anesthesia Family History: No Family History of Anesthesia Complications Exercise Tolerance Exercise Tolerance: Metabolic Equivalents>4 Pertinent Negatives Pertinent Negatives: No Symptoms of GERD Cardiac & Pulmonary Exam Cardiac Exam: Normal S1/S2 Heart Sounds Pulmonary Exam: Clear Bilateral Breath Sounds Implantable Cardiac Device Does patient have a Pacemaker or an ICD?: No Airway Exam Known Difficult Airway: No Mallampati Class: 2 Mouth Opening: Normal (> 3cm) Thyromental Distance: Greater than 3 cm Neck Range of Motion: Full ROM Neck Circumference: Normal Teeth Condition: Normal Dentition ASA Classification ASA Score: ASA 2 Emergency Case?: No NPO Status NPO Status: NPO Clears >2 hours, Solids >8 hours Anesthesia Plan Resuscitation Status: Full Code Anesthesia Technique: Spinal Anesthesia Airway Planned: Natural Airway Pain Management: Surgeon and patient request nerve block Monitors Used: Standard Monitors
[2021-07-03] MEDS: Lactated Ringers 1,000 ML 80 ML IV (08:24)
[2021-07-03] MEDS: Acetaminophen 500 MG TAB 1000 MG PO (08:31)
[2021-07-03] MEDS: Celecoxib 200 MG CAP 400 MG PO (08:32)
[2021-07-03] MEDS: Gabapentin 300 MG CAP PO (08:33)
[2021-07-03] MEDS: ceFAZolin 2 GM/50 ML BAG IVPB (09:00)
[2021-07-03] MEDS: Bupivacaine 0.25% Pres-Free 30 ML VIAL (09:31)
[2021-07-03] MEDS: Ketorolac 30 MG/ML VIAL (09:32)
--- NOTE | 2021-07-03 09:34 | W.ANESNERVE ---
Nerve Block Single Injection Procedure Date and Time Date Performed: 07/03/21 Procedure Start: 08:48 Location Where Procedure Performed Procedure Location: Day Surgery Unit Reason Performed: Postoperative Analgesia Requesting Provider: Edward Kirby Timeout Performed Timeout Performed: Yes Monitoring Used ECG, Blood Pressure, SpO2 and See EMR for corresponding vital signs Sterility Sterility: Hand Hygiene, Surgical Cap, Surgical Mask, Sterile Gloves and Chlorhexidine Sedation Given During Procedure Sedation Given (Indicate Dose Given): No Sedation given Patient Mental Status Patient Mental Status: Awake Nerve Block 1st Nerve Block: Laterality: Right Block Type: Adductor Canal Needle / Catheter Used: 100mm SonoPlex II Local Anesthetic Bolus (Indicate Dose Given): Lidocaine used for local infiltration of skin, Injected in 3-5ml increments after negative blood aspiration and Bupivacaine 0.25% Dose:: 20ml Additives (Indicate Dose Given): None Ultrasound: Sterile probe cover and gel used Ultrasound Image Saved?: Yes Nerve Stimulator: Not Used Paresthesia: None Procedure Tolerated: No Complications and Patient tolerated well Procedure Outcome: Successful Performed By: Juanito Schmitz
--- NOTE | 2021-07-03 10:59 | W.ANESPOSTOP ---
Postoperative Evaluation Date, Time and Location Date Performed: 07/03/21 Time Performed: 10:59 Patient Location: PACU Vital Signs Most Recent Imported Vital Signs: Most Recent Vital Signs Temp Pulse Resp BP Pulse Ox 36.3 C L 53 L 14 145/78 H 100 07/03/21 10:51 07/03/21 10:51 07/03/21 10:51 07/03/21 10:51 07/03/21 10:51 Pain Score Most Recent Pain Score: Most Recent Pain Score Pain Level 0 07/03/21 10:51 Assessment Mental Status: Awake (Alert & Oriented to Patient Baseline) Airway and Respiratory Function: Patent airway with normal (patient baseline) respiratory exam Cardiovascular Function: Hemodynamically Stable Hydration Status: Adequately Hydrated Nausea & Vomiting: No Nausea or Vomiting Pain: Pt. Denies Any Pain Peripheral Nerve Block: Regional nerve block not resolved at time of post operative discharge Postoperative Comments:: Comfortable, good motor strength.
--- NOTE | 2021-07-03 12:13 | IN_ITS ---
Date of service: 07/03/21 Time of Service: 12:13 PT Notes Visit Reasons: Right TKA Physical Therapy Day Surgery Initial Evaluation Date: 07/03/2021 Referring Doctor: CARMEN Metcalf PT Orders: PT CONSULT: S/P Ortho Surgery Precautions: WBAT on R LE with AD. Patient Profile/Admitting Diagnosis: Ca is a 75-year-old female with degenerative joint disease of the right knee and is S/P R total knee arthroplasty on post operative day 0. PMHX: Medical History (Updated 06/20/21 @ 15:13 by Fany Lorenzana) Bradycardia Surgical History (Updated 06/21/21 @ 13:22 by Fany Lorenzana) Cyst of Bartholin's gland History of bilateral cataract extraction (~2014) History of breast implant (~1966) History of breast implant removal (~2003) Social History/Home Situation: Lives with sister in a private home with 4 steps to enter with a rail on the right side. Will stay overnight at daughter's house when she goes home today. Independent with all aspects of ADLs prior to surgery. 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 Equipment Owned/DME: [facility] Subjective: Agreeable to PT consult. Reports mild ache in the R knee with weight bearing. Denies headache, chest pain, and lightheadedness throughout session. Objective: General Observation: GRIS wraps to right LE. Cryocuff to right knee. TEDS on left leg. Mental Status: Alert and oriented x 4 Pain: 1/10 in the R knee ROM: Right Lower Extremity: Hip flexion WFL. Hip abduction WFL. Knee flexion 0 to 90 degrees. Knee extension 90 degrees to 0 degrees. Ankle dorsiflexion WFL. Ankle plantarflexion WFL. Left Lower Extremity: Hip flexion WFL. Hip abduction WFL. Knee flexion WFL. Ankle dorsiflexion WFL. Ankle plantarflexion WFL. Strength: Right Lower Extremity: Hip flexors 4/5. Hip abductors 4/5. Knee flexors 3-/5. Knee extensors 4-/5. Ankle dorsiflexors 5/5. Ankle plantarflexors 5/5. Left Lower Extremity:Hip flexors 5/5. Hip abductors 5/5. Knee flexors 5/5. Knee extensors 5/5. Ankle dorsiflexors 5/5. Ankle plantarflexors 5/5. Sensation: Intact as to pain and light pressure in B LE Bed Mobility/Transfers: Supine to sit standby assist Sit to stand contact-guard assist Stand to sit standby assist Bed to chair contact-guard assist Gait: Instructed patient with level surface ambulation of 20 feet +100 feet with front wheeled walker using step-through gait pattern requiring contact-guard assist with WBAT on the right LE. Minimal cues needed for correct gait pattern and increasing R knee flexion during swing phase on the R LE. Able to activate quads well during mid stance on the right. No LOB. No SOB. Stairs: Up and down 6 x 4 inch steps and 4 x 6 inch steps while holding onto 1 rail and single point cane, step-to gait pattern requiring contact-guard assist. Minimal verbal cues given for safe and correct technique. Balance: Static Sitting: Normal Dynamic Sitting: Normal Static Standing: Fair Dynamic Standing: Fair Special Tests: Mobility Limitations Standardized Measure [facility] AM-PAC 6 clicks Basic Mobility Inpatient Short Form: Raw Score: 22 CMS Score: 21% deficit Informed Consent/Education: Patient instructed in purpose of PT consult. Education and training on initial set of exercises that can be done at home have been completed with patient. Assessment: Danitza the use of a front-wheeled walker mobility ADL performance to maximize insulin reduce fall risk. Patient presents with clinical signs and symptoms consistent with current/admitting diagnoses that have resulted to mobility limitations, gait instability, generalized weakness, and impairment of motor control as demonstrated by the following impairment level findings: 1. Decreased strength to left knee major muscle groups 2. Impaired standing balance 3. Limitation of joint range of motion in left knee Impairments are contributing to the following functional limitations: 1. Inability to safely ambulate without assistive device 2. Increase completion time for mobility ADL performance 3. Increased fall risk Patient is assessed as a 61638 moderate complexity based on the following: History: 75-year-old female with impairment level findings, functional limitations, and past medical history as indicated above Examination: Demonstrable impairment in strength, balance, and mobility level with underlying impairments and functional limitations as documented above Presentation: Evolving Decision Makin moderate complexity Goals: N/A. PT evaluation and 1-2 treatment sessions only for functional mobility training using recommended AD and for HEP instruction. Plan of Care/Treatment Plan: N/A. PT evaluation and 1-2 treatment session only for functional mobility training using recommended AD and for HEP instruction. DISCHARGE RECOMMENDATIONS: [] Home with no services [] [] Home with services [specify] [X] Home with outpatient PT. Home when medically cleared by orthopedic surgeon. Will benefit from outpatient PT services to facilitate return to inde pendent community ambulation without an assistive device. [] SNF for continued rehabilitation [] [] [facility] [] [] SNF versus LTC based on ability to participate and progress [] TREATMENT CODE/TIME: 9716 2 x 20 minutes, 70007 x 16 minutes beginning at 12:13 PM. Thank you for the opportunity to participate in the care of this patient. Bettie Alves PT, DPT, CLT [facility] [place], [place]
--- NOTE | 2021-07-03 19:16 | ROE_ITS ---
Date of service: 07/03/21 Time of Service: 10:42 Operative Note Operative Note DATE OF PROCEDURE: 07/03/21 PRE-OP DIAGNOSIS: Right Knee Osteoarthritis POST-OP DIAGNOSIS: same PROCEDURE: Right Total Knee Replacement SURGEON: Edward Kirby INFORMATION SYSTEMS COORDINATOR: Alison Hamilton ANESTHESIA TYPE: Spinal Refer to Anesthesia Record ESTIMATED BLOOD LOSS: 100 PATHOLOGY: none sent TOURNIQUET TIME: 31 COMPLICATIONS: None Patient was transported to: PACU Patient's condition: stable Implants: 1. Depuy Attune Cruciate Retaining Femoral Component, Size 6 Narrow 2. Depuy Attune Rotating Platform Tibial Component, Size 4 3. Depuy Attune 6x7 CR,RP Poly 4. Depuy Attune Patellar Component, Size 35 Indications: I have seen [NAME] in clinic for symptoms of knee arthritis, confirmed with radiographic findings. [NAME] has exhausted nonoperative methods and was having significant limitations in daily function and desired better function and less pain. I discussed the technical details of a knee replacement. I explained the risks of the procedure to include, but not limited to, bleeding, infection, pain, stiffness, fracture, damage to nerves and vessels, damage to muscles and tendons, loosening, need for repeat procedure, blood clot and cardiopulmonary demise. Despite these risks, [NAME] elected to proceed. Findings: There was significant signs of arthritis throughout the knee noted mostly by complete eburnation of the posterior medial femur and tibia with large osteophytes. Procedure Description: Danitza was greeted in the preoperative holding area where the correct side was identified and marked. The consent was reviewed with the patient and signed. The history and physical was updated. All questions were answered. Preoperative mediacations were administered: Acetaminophen 1000mg, Celebrex 400mg, and Gabapentin 300mg. An adductor canal block was then administered by the anesthesia team in the PACU. Danitza was taken back to the operating room. A spinal anesthestic was then administered. The patient was placed into the supine position on the operating room table. A nonsterile tourniquet was placed high onto the leg but only used for cementing. Posts were placed for positioning during the procedure. All bony prominences were well padded. Prophylactic antibiotics in the form of Cefazolin were administered. 1g of Tranxemic Acid was given intravenously within 30 minutes of incision. The right leg was then prepped with Chloraprep and draped in a standard fashion with impervious stockinette and extremity drape. A second prep with Chloraprep was performed prior to placing Ioband. A timeout to confirm correct identity, side and site, procedure, allergies, anesthesia, and medical concerns was performed. With the knee in some flexion, a midline incision was made overlying the knee. Full thickness skin flaps were raised once the extensor mechanism was encountered. These were raised medially and laterally. Any bleeding was controlled with electrocautery. Once the extensor mechanism was fully exposed, a medial parapatellar arthrotomy was performed in a flexed position. All bleeding from the arthrotomy and the geniculate arteries was coagulated. A medial subperiosteal peel was performed with electrocautery to the midcoronal plane. Due to the significant varus deformity the entire medial tibial plateau was exposed. The fat pad was removed while keeping the patellar tendon protected. The anterior distal femur synovium was removed for later visualization. The ACL and PCL were resected and the anterior horn of the lateral meniscus was transected. The knee was then flexed with the patella everted. Large osteophytes from the tibia were removed. Large osteophytes from the femur were removed. Using a step drill, and based on preoperative templating, the femoral canal was entered. This was done with a step drill without any difficulty. The intramedullary distal femoral cut guide was inserted, set to a 6 degree valgus cut and 9mm cut thickness. The distal femoral cut guide was then held in position and pinned. With the soft tissues protected, the distal cut was performed. This was passed over a few times to ensure a planar cut. I then turned attention to the tibia. The extramedullary guide was placed onto the leg. The distal aspect was slid medial to adjust for position of center of ankle and stay in line with shaft of the tibia. Approximately 3-5 degrees of posterior slope was kept in the proximal cutting guide. The center of the guide was aligned with the PCL. The stylus was used to assess cut thickness. The medial side, most involved side, was set for a 3mm cut, corresponding to 9mm laterally. This was then held in position and pinned into place with 2 additional pins and a cross pin for stability. The medial and lateral collateral ligaments were protected and the cut was performed. With this completed, it was assessed and noted to be of appropriate dimensions. The guide was removed. A spacer block was inserted and the knee was brought into extension. The 7mm spacer block provided full extension, without hyperextension and with stability of both the medial and lateral collateral ligaments was assessed. The pins from the femur and the tibia were then removed. The distal femur was then sized. The anterior stylus was placed onto the latera l ridge of the anterior femur. This indicated a size 6 femur. The external rotation of the guide was adjusted to 3 degrees to match the epicondylar axis, perpendicular to Canyon?s line. The 4-in-1 cutting guide was the placed. The posterior medial femur cut was evaluated and appeared of good thickness. The spacer block was inserted underneath the cutting guide and stability was confirmed in 90 degrees of flexion. An suzie wing was used to confirm appropriate position of the anterior cut to avoid notching. This cutting guide was ensured to be flush on the cut surface and then pinned into place with headed pins. While protecting the soft tissues, quad tendon, and collateral ligaments, the anterior and posterior cuts were performed with a saw. The central two pins were removed and the posterior and anterior chamfers were cut next. The notch-cutting guide was placed. This was pinned to lateralize the femoral component as much as possible while keeping it flush on the cut surface. This was then pinned into position. A reciprocating saw was used to make the small notch cut. A trial CR femoral component was then inserted, impacted down to the cut surfaces, and the lug holes were drilled. A provisional trial tibial component was placed and the knee was brought through range of motion. There was noted to be excellent extension and flexion. There was no significant i nstability. The patella was tracking without thumbs. The tibial cut surface was fully exposed. The medial and lateral menisci were removed. The tibia was then sized as a 4. The tibia had been previously marked during trialing to correspond to the center of the tibial component to help with rotation. The trial was aligned to this caitlyn, approximately rotated to the medial 1/3rd of the tibial tubercle. The trial was pinned into place. The tibia was prepared with a reamer and a keel punch. The knee was then brought into extension and the patella was measured as 23mm. Using the patellar clamp and cut guide, this was resected to a flat surface with at least 13mm of thickness remaining. The size 35 patella fit the best. This was oriented and then clamped into position. The lugs were drilled. The trial components were removed. The final components, except for the polyethylene were opened on the back table. The periosteal and capsular tissues, especially posteriorly, around the knee were then systematically injected with a periarticular cocktail consisting of 50cc 0.25% Marcaine, 30mg Ketorolac, 20cc of Exparal and 50cc of injectable saline. The tourniquet was then inflated to 275mmHg. The knee was thoroughly irrigated with a pulse lavage and dried. On the back table, with the implants opened, the cement was mixed. 2 batches of medium viscosity cement were prepared with vacuum assistance. After the cement was ready it was placed on to the back side of the tibial component. A small amount was placed onto the posterior flange of the femur. Cement was manual pressurized and impregnated into the cut surface of the tibia. The tibial component was then inserted into the cut surface and impacted into position. Excess cement was removed and the component was reimpacted. Again, excess cement was removed and our attention was then turned to the femur. The femoral cut surface was once again dried and cement was manually impacted into the cut surface. The femoral component was lined with the lug holes and impacted. Excess cement was removed. It was ensured to be down against the cut surface. The trial polyethylene was then inserted and the leg was brought out into full extension for the duration of the cement curing process, approximately 18min. Cement was lastly manually impacted into the cut surface of the patella and the patellar button was clamped into position and held. During this process attention was turned to the gutters of the knee and for all interfaces for any excess cement. While the cement was hardening, the knee was irrigated with Irrisept chlorhexadine solution. It was allowed to sit in the knee for 3 minutes. After the cement had finally cured, approximately 18min, the clamp was removed from the patella and the knee was taken through range of motion. A size 7mm polyethylene component provided the best range of motion and stability with less than 2mm gapping with medial and lateral stress and full extension without significant hyperextension. The patella was tracking with a no-thumbs technique. The trial poly was removed and once again the knee was checked for any loose, excess, or errant cement. The poly component was then inserted into position after cleaning and drying the tibial tray. The capsule was then reapproximated with a No. 1 Vicryl at multiple locations. The capsule was finally closed with a No. 2 Stratafix, barbed suture. The tourniquet was then released and the arthrotomy appeared watertight without significant bleeding. The second dosing of 1g TXA was started. Deep tissues were then reapproximated with 0 Vicryl and 2-0 Vicryl. The skin was closed with a running 3-0 Monocryl in a subcuticular fashion. This was reinforced with skin glue. A Mepilex silver dressing was applied along with a [id number] GRIS wrap. A CryoCuff was applied. Danitza was transferred to the hospital bed without difficulty an suffering no apparent complication. Danitza has a good prognosis. Physical therapy will start today and without restrictions, weight-bearing as tolerated. Aspirin 81mg BID will be used for DVT prophylaxis.
== END 2021-07-03 13:37 | disposition home or self-care (01) ==
LOC: SUR 07:29
PROVIDERS: PCP Student in an Organized Health Care Education/Training Program; Visit Provider Student in an Organized Health Care Education/Training Program
PROC: (CPT 27447; principal; 2021-07-03 09:30)
DX: M17.11 Unilateral primary osteoarthritis, right knee (principal); E78.5 Hyperlipidemia, unspecified; I10 Essential (primary) hypertension; G47.33 Obstructive sleep apnea (adult) (pediatric)
CPT/HCPCS: 27447; C1776; 76942; 97162; 97530; J0690; J1885; J2405

== ENCOUNTER 2021-07-16 11:04 | Outpatient (CLI) | payer MEDICARE, OTHER, SELFPAY ==
--- NOTE | 2021-07-16 10:21 | DI.RAD_ITS ---
Exam(s) XR KNEE RT 1V XR STANDING ALIGNMENT EXAM: XR STANDING ALIGNMENT CLINICAL HISTORY: HISTORY TOTAL RIGHT KNEE REPLACEMENT. TECHNIQUE: 2D digital imaging was performed. Standing AP views were performed from the pelvis throu gh the ankles. COMPARISON: CR XR STANDING ALIGNMENT from 06/21/2021 CR XR KNEE RT 1V from 07/16/2021 FINDINGS: BONES: No acute fracture is present. No bony destructive lesion is seen. The right femoral head proje cts superior to the left by approximately 9 millimeters. JOINTS: Knees: A right total knee prosthesis is now seen.The alignment appears satisfactory. No susp icious bony lucencies. Left knee joint spaces well maintained. The ankle and hip joints are unremarkable. SOFT TISSUE: Normal. IMPRESSION: Status post placement of right knee prosthesis. Mild overall leg length discrepancy. DATA REPOSITORY: RADIATION DOSE DELIVERED:
== END 2021-07-16 11:05 | disposition home or self-care (01) ==
LOC: DIORS 11:05
PROVIDERS: PCP Student in an Organized Health Care Education/Training Program; Referring Provider Student in an Organized Health Care Education/Training Program; Visit Provider Physician Assistant Surgical
DX: Z96.651 Presence of right artificial knee joint (principal); Z47.1 Aftercare following joint replacement surgery
CPT/HCPCS: 73560; 77073

== ENCOUNTER → 2021-08-13 13:32 | Outpatient (BNVA) | payer MEDICARE, OTHER, SELFPAY | PROVIDERS: PCP Student in an Organized Health Care Education/Training Program; Referring Provider Student in an Organized Health Care Education/Training Program; Visit Provider Student in an Organized Health Care Education/Training Program | DX: Z47.1 Aftercare following joint replacement surgery (principal) ==

== ENCOUNTER 2021-08-27 01:46 | Outpatient (CLI) | payer MEDICARE, OTHER, SELFPAY ==
--- NOTE | 2021-08-27 08:15 | DI.US_ITS ---
Exam(s) US THYROID EXAM: US THYROID CLINICAL HISTORY: evaluate left lobe incidental finding (carotid us),e04.1,thyroid nodule. TECHNIQUE: Ultrasound thyroid performed using standard protocol. COMPARISON: Carotid ultrasound examination performed January 2020 reviewed. That study revealed a 1.4 x 0.9 x 1.3 cm incidental nodule in left thyroid lobe. FINDINGS: Both thyroid lobes exhibit normal size with somewhat heterogeneous echotexture. Isthmus is upper nor mal size and does not contain nodules. RIGHT THYROID LOBE: Measures 1.6 cm AP x 1.1 cm wide x 4 point cm craniocaudal There are 2 adjacent findings in the right lobe. One is a shadowing macro calcification. Just media l to this is a smaller finding which has the appearance of a small nodule. This nodule is as follows: Size: Measures a 0.4 x 0.3 x 0.3 cm Composition: Solid-2 points Echogenicity: Very hypoechoic-2 points Shape: Not taller than wider in the transverse plane-therefore 0 points Margin: Smooth-0 points Echogenic Foci: None-0 point Total Points for this nodule: 4 ACR Ti-Rads Category: TR4. This nodule can be followed given that it measures less than 1 cm. ISTHMUS: Normal thickness. There are no nodules in the isthmus. LEFT THYROID LOBE: Measures 1.6 cm AP x 1.2 wide x 3 point cm craniocaudal There is a solitary predominately solid nodule in the lower half of the left lobe which corresponds t o the finding incidentally noted on the carotid ultrasound performed in January 2020. Nodule size: Measures 1.2 x 1.0 x 1.4 cm Composition: Solid-2 points Echogenicity: Isoechoic to surrounding parenchyma-1 points Shape: Not taller than wider in the transverse plane-therefore 0 points Margin: Smooth-0 points Echogenic Foci: None-0 points LYMPH NODES: There is no significant adenopathy. IMPRESSION: 1. Findings in both thyroid lobes as described above. These nodules can undergo restudy in 1 year to ensure stability. 2. There is no significant lymphadenopathy. DATA REPOSITORY:
== END 2021-08-27 02:06 ==
PROVIDERS: PCP Student in an Organized Health Care Education/Training Program; Visit Provider Student in an Organized Health Care Education/Training Program
DX: E04.2 Nontoxic multinodular goiter (principal)
CPT/HCPCS: 76536

== ENCOUNTER → 2021-09-03 10:51 | Outpatient (BNVA) | payer MEDICARE, OTHER, SELFPAY | PROVIDERS: PCP Student in an Organized Health Care Education/Training Program; Referring Provider Student in an Organized Health Care Education/Training Program; Visit Provider Student in an Organized Health Care Education/Training Program | DX: Z96.651 Presence of right artificial knee joint (principal) ==

== ENCOUNTER → 2021-10-01 10:43 | Outpatient (BNVA) | payer MEDICARE, OTHER, SELFPAY | PROVIDERS: PCP Student in an Organized Health Care Education/Training Program; Referring Provider Student in an Organized Health Care Education/Training Program | DX: Z96.651 Presence of right artificial knee joint (principal) ==

== ENCOUNTER 2021-10-15 02:59 | Outpatient (CLI) | payer MEDICARE, OTHER, SELFPAY ==
--- NOTE | 2021-11-05 08:52 | W.CARDEVENT ---
Date of service: 11/05/21 Time of Service: 08:52 Cardiac Event Recorder Referring Provider:: Amalia Ventura Indications:: Palpitations Cardiac Event Note: This is a 14-day equipment monitor phototypesetting palpitations Predominant rhythm was sinus with an average heart rate of 58. Minimum was 41, maximum 118 There were rare ventricular ectopic beats there were several runs of nonsustained ventricular tachycardia, 3-6 beats in duration. These were not symptomatic There were rare atrial premature beats. There were multiple brief self-limited atrial runs, also asymptomatic There was no atrial fibrillation, no high-grade AV block, no pauses greater than 3 seconds Patient symptoms were reported which corresponded to sinus rhythm
== END 2021-10-15 03:00 | disposition home or self-care (01) ==
PROVIDERS: PCP Student in an Organized Health Care Education/Training Program; Visit Provider Student in an Organized Health Care Education/Training Program
DX: I49.8 Other specified cardiac arrhythmias (principal)
CPT/HCPCS: 93246

== ENCOUNTER 2021-10-19 18:16 | Outpatient (CLI) | payer MEDICARE, OTHER, SELFPAY ==
[2021-10-19 16:09] LABS: Anion Gap 8.5 mmol/L (3-11); BUN 21 mg/dL (7-18); CO2 31.5 mmol/L (21.0-32.0); CREATININE 0.8 mg/dL (0.55-1.02); Calcium 8.8 mg/dL (8.5-10.1); Chloride 102 mmol/L (98-107); Glucose 105 mg/dL (74-106); Potassium 3.6 mmol/L (3.5-5.1); Sodium 142 mmol/L (136-145)
== END 2021-10-19 18:17 | disposition home or self-care (01) ==
LOC: LBO 18:20
PROVIDERS: PCP Student in an Organized Health Care Education/Training Program; Visit Provider Student in an Organized Health Care Education/Training Program
DX: I10 Essential (primary) hypertension; R60.0 Localized edema; E87.8 Other disorders of electrolyte and fluid balance, not elsewhere classified
CPT/HCPCS: 36415; 80048

== ENCOUNTER 2021-11-05 08:52 | Outpatient (CLI) | payer MEDICARE, OTHER, SELFPAY | END 2021-11-05 08:53 | LOC: CARDO 01-02 10:18 | PROVIDERS: PCP Student in an Organized Health Care Education/Training Program; Referring Provider Student in an Organized Health Care Education/Training Program; Visit Provider Internal Medicine Cardiovascular Disease | DX: I49.8 Other specified cardiac arrhythmias (principal); R00.2 Palpitations | CPT/HCPCS: 93248 ==

== ENCOUNTER → 2022-01-25 13:26 | Outpatient (BNVA) | payer MEDICARE, OTHER, SELFPAY | PROVIDERS: PCP Student in an Organized Health Care Education/Training Program; Visit Provider Internal Medicine Cardiovascular Disease | DX: I10 Essential (primary) hypertension (principal); M17.11 Unilateral primary osteoarthritis, right knee | CPT/HCPCS: 99213 ==

== ENCOUNTER 2022-01-31 11:36 | Outpatient (CLI) | payer MEDICARE, OTHER, SELFPAY ==
--- NOTE | 2022-01-31 11:00 | DI.RAD_ITS ---
Exam(s) XR KNEE RT 2V AP,LAT EXAM: XR KNEE RT 2V AP,LAT CLINICAL HISTORY: Right knee pain. TECHNIQUE: 2D digital imaging was performed of the right knee. Two views obtained. AP and lateral views were obtained. COMPARISON: CR XR KNEE RT 3V AP,LAT,MOISES from 04/16/2021 CR XR KNEE RT 1V from 07/16/2021 FINDINGS: BONES: No acute fracture is present. No bony destructive lesion is seen. JOINTS: The knee is normally aligned. There is a small suprapatellar joint effusion. There are stabl e postsurgical changes of a right total knee replacement. SOFT TISSUE: Normal. IMPRESSION: Stable right TKR. DATA REPOSITORY: RADIATION DOSE DELIVERED:
== END 2022-01-31 11:37 | disposition home or self-care (01) ==
LOC: DIORS 11:37
PROVIDERS: PCP Student in an Organized Health Care Education/Training Program; Referring Provider Student in an Organized Health Care Education/Training Program; Visit Provider Physician Assistant
DX: M70.51 Other bursitis of knee, right knee (principal); M53.3 Sacrococcygeal disorders, not elsewhere classified; Z96.651 Presence of right artificial knee joint
CPT/HCPCS: 99214; 73560

== ENCOUNTER → 2022-02-14 00:55 | Outpatient (CLI) | payer MEDICARE, OTHER, SELFPAY ==
--- NOTE | 2022-02-14 08:00 | DI.MAMMO_ITS ---
Exam(s) MAMMO SCREENING EXAM: MAMMO SCREENING CLINICAL HISTORY: screening.Z12.39. TECHNIQUE: Bilateral full field digital CC and MLO mammographic images were obtained with 3D tomosyn thesis and utilizing computer aided detection (CAD). COMPARISON: Prior mammograms were reviewed, the most recent being February 2020. FINDINGS: There has been no significant change in the appearance and distribution of the fibroglandular tissue. There are no new spiculated masses nor malignant appearing microcalcification groups. There is no significant architectural distortion nor skin thickening-retraction. IMPRESSION: No radiographic evidence of malignancy. BI-RADS Category 1 - Negative Breast Density - Category C - Heterogeneously dense Breast density Category C or D implies that the patient has dense breast tissue. Dense breast tissue can make it harder to find cancer on a mammogram. Dense breast tissue is also associated with an incr eased risk of breast cancer. This information about the result of the mammogram report was provided to the patient to raise their awareness. Use this report when you speak with the patient about their risks for breast cancer, which includes their family history. At that time, you may recommend additional screening tests (Ultrasoun d or MRI) as these tests may add significant information. A negative radiographic report should not delay biopsy if a dominant or clinically suspicious mass is present. Up to ten percent of cancers are not identified on mammography. A negative report may reinforce clinical impression. Adenosis and dense breasts may obscure an underlying neoplasm. False positive reports average 6 to 10%. Patient will receive a letter notifying them of these results.
== END ==
PROVIDERS: PCP Student in an Organized Health Care Education/Training Program; Visit Provider Student in an Organized Health Care Education/Training Program
DX: Z12.31 Encounter for screening mammogram for malignant neoplasm of breast (principal); R92.8 Other abnormal and inconclusive findings on diagnostic imaging of breast
CPT/HCPCS: 77063; 77067

== ENCOUNTER → 2022-05-28 14:46 | Outpatient (CLI) | payer MEDICARE, SELFPAY ==
--- NOTE | 2022-05-28 13:45 | DI.RAD_ITS ---
Exam(s) XR KNEE RT 4V AP,LAT,MOISES,PAT EXAM: XR KNEE RT 4V AP,LAT,MOISES,PAT CLINICAL HISTORY: eval fluid in knee; patella; bursitis M70.51 M25.561 PAIN RT KNEE. TECHNIQUE: 2D digital imaging was performed of the right knee. Five views obtained. Merchant, AP, la teral and PA tunnel views were obtained. COMPARISON: CR XR KNEE RT 2V AP,LAT from 01/31/2022 FINDINGS: BONES: No acute fracture is present. No bony destructive lesion is seen. JOINTS: The knee is normally aligned. There is a small suprapatellar joint effusion. There are stabl e postsurgical changes of a right total knee arthroplasty. SOFT TISSUE: Normal. IMPRESSION: Small joint effusion. DATA REPOSITORY: RADIATION DOSE DELIVERED:
== END ==
PROVIDERS: PCP Student in an Organized Health Care Education/Training Program; Visit Provider Student in an Organized Health Care Education/Training Program
DX: M25.461 Effusion, right knee (principal); M70.51 Other bursitis of knee, right knee
CPT/HCPCS: 73564

== ENCOUNTER 2022-07-12 10:36 | Outpatient (CLI) | payer MEDICARE, SELFPAY ==
--- NOTE | 2022-07-12 10:30 | DI.RAD_ITS ---
Exam(s) XR KNEE RT 2V AP,LAT EXAM: XR KNEE RT 2V AP,LAT INDICATION: ANNUAL F/U R TKA. COMPARISON: CR XR KNEE RT 4V AP,LAT,MOISES,PAT from 05/28/2022 TECHNIQUE: 2D digital imaging was performed. Two views. FINDINGS: There has been no change in the alignment of the total knee prosthesis or appearance of the surroundi ng bone. DATA REPOSITORY: RADIATION DOSE DELIVERED:
== END 2022-07-12 10:37 | disposition home or self-care (01) ==
LOC: DIORS 10:40
PROVIDERS: PCP Student in an Organized Health Care Education/Training Program; Referring Provider Student in an Organized Health Care Education/Training Program; Visit Provider Student in an Organized Health Care Education/Training Program
DX: Z96.651 Presence of right artificial knee joint (principal); M76.891 Other specified enthesopathies of right lower limb, excluding foot
CPT/HCPCS: 99214; 73560

== ENCOUNTER 2022-07-24 03:29 | Outpatient (CLI) | payer MEDICARE, SELFPAY ==
[2022-07-24 14:50] LABS: ESR 15 mm/hr (0-30)
[2022-07-24 15:43] LABS: C-Reactive Protein < 0.05 mg/dL (0.0-0.3)
== END 2022-07-24 03:30 | disposition home or self-care (01) ==
LOC: LBO 03:29
PROVIDERS: Student in an Organized Health Care Education/Training Program; PCP Student in an Organized Health Care Education/Training Program; Visit Provider Student in an Organized Health Care Education/Training Program
DX: M25.561 Pain in right knee (principal); M76.891 Other specified enthesopathies of right lower limb, excluding foot
CPT/HCPCS: 36415; 85652; 86140

== ENCOUNTER → 2022-08-08 11:05 | Outpatient (BNVA) | payer MEDICARE, SELFPAY | PROVIDERS: PCP Student in an Organized Health Care Education/Training Program; Referring Provider Student in an Organized Health Care Education/Training Program; Visit Provider Student in an Organized Health Care Education/Training Program | DX: M76.891 Other specified enthesopathies of right lower limb, excluding foot (principal); T84.84XA Pain due to internal orthopedic prosthetic devices, implants and grafts, initial encounter; T84.82XA Fibrosis due to internal orthopedic prosthetic devices, implants and grafts, initial encounter; Z96.651 Presence of right artificial knee joint | CPT/HCPCS: 99213 ==

== ENCOUNTER 2022-08-14 10:16 | Day surgery (SDC) | payer MEDICARE, SELFPAY ==
[2022-08-14] VITALS (9 sets, daily range): BP systolic 85–185; BP diastolic 26–75; PULSE 50–56; RESP 14–20; TEMP 36.4–37; O2SAT 95–100; BMI 29.9
--- NOTE | 2022-08-14 07:40 | W.PM.DSUDISC ---
Date of service: 08/14/22 Time of Service: 07:42 Discharge Plan Disposition Patient Disposition: Home Condition: Good Discharge Details Reason For Visit: Arthrofibrosis of right TKA Attending Provider: Edward Kirby Primary Care Provider: Amalia Ventura Home Meds and New Rx's Prescriptions: New acetaminophen 500 mg tablet 500 mg PO Q6H PRN (Reason: pain) Qty: 60 2RF ibuprofen 600 mg tablet 600 mg PO TID PRN (Reason: pain) Qty: 60 0RF Continued cholecalciferol (vitamin D3) 5,000 unit capsule 5,000 unit PO DAILY furosemide 40 mg tablet 40 mg PO DAILY Qty: 90 1RF Rx Instructions: trial incrwease magnesium 200 mg tablet 165 mg PO BID aspirin [Adult Aspirin Regimen] 81 mg tablet,delayed release (DR/EC) 81 mg PO DAILY levothyroxine 75 mcg tablet 75 mcg PO DAILY Qty: 90 3RF amlodipine 5 mg tablet 5 mg PO BID Qty: 180 3RF Hold Instructions: Home Medication placed on hold at Doctor's office lisinopril 40 mg tablet 40 mg PO DAILY Qty: 90 3RF metoprolol succinate 25 mg tablet extended release 24 hr 25 mg PO DAILY Qty: 90 3RF Rx Instructions: Continue lower dose BB, 02/2019 Discharge Instructions Additional Instructions: Knee Manipulation Discharge Instructions Activity: You should begin moving as soon as possible. You may work on flexion but also equally maintain extension. You may bear weight as tolerated, using crutches only for support/comfort. You should apply ice to help with swelling and elevate when possible (especially in the first few days). Dressings: The knee dressing may come down after 48 hours. You may shower and get the wound wet at that time. You should keep the wounds covered with a bandaid until follow-up. Medications: - Rarely does this require any stronger pain medications. - Recommend to take up to 1000mg of Acetaminophen (Tylenol) and 600mg of Ibuprofen (Advil) every 8 hours as needed. These larger strength tablets were called in but you also may use [id number]. Follow-up: 7-10 days Referrals: Edward Kirby MD [ [facility] STAFF PHYSICIAN] - Equipment/Supplies: Partial Weight Bearing Crutches Activity:: Elevate Remove Dressings/Wound Care:: 48 hours Shower/Bathe:: 48 hours Diet:: As Tolerated Discharge Orders Discharge Orders: Discharge Order (Routine); Ordered 08/14/22 Ordered By: Fany Lorenzana
[2022-08-14] MEDS: Lactated Ringers 1,000 ML 80 ML IV (11:12)
[2022-08-14] MEDS: Acetaminophen 500 MG TAB 1000 MG PO (11:13)
[2022-08-14] MEDS: Celecoxib 200 MG CAP 400 MG PO (11:14)
[2022-08-14] MEDS: Gabapentin 300 MG CAP PO (11:14)
--- NOTE | 2022-08-14 11:23 | ANES.PREOP_ITS ---
General Info Date of Service Date Performed: 08/14/22 Height: 5 ft 2 in Weight: 74.4 kg Body Mass Index (BMI): 29.9 Surgical Procedure: Operation Date: 08/14/22 12:10 Proposed Procedure Side Surgeon p Knee Arthroscopy Synovectomy Right Edward Kirby MD Meds Allergies and Home Medications Allergies Allergy/AdvReac Type Severity Reaction Status Date / Time hydralazine AdvReac Intermediate worsening Verified 08/12/22 15:06 hypertension Home Medication Medication Instructions Recorded cholecalciferol (vitamin D3) 125 5,000 unit PO DAILY 04/14/19 mcg (5,000 unit) capsule magnesium 200 mg tablet 165 mg PO BID 06/21/21 aspirin 81 mg tablet,delayed 81 mg PO DAILY 10/04/21 release (Adult Aspirin Regimen) levothyroxine 75 mcg tablet 75 mcg PO DAILY #90 tabs 11/29/21 furosemide 40 mg tablet 40 mg PO DAILY #90 tabs 05/28/22 amlodipine 5 mg tablet 5 mg PO BID #180 tabs 06/22/22 lisinopril 40 mg tablet 40 mg PO DAILY #90 tabs 06/22/22 metoprolol succinate 25 mg 25 mg PO DAILY #90 tabs 06/22/22 tablet,extended release 24 hr acetaminophen 500 mg tablet 500 mg PO Q6H PRN pain #60 tabs 08/14/22 ibuprofen 600 mg tablet 600 mg PO TID PRN pain #60 tabs 08/14/22 Current Visit Medications: Current Medications Generic Name Dose Route Start Last Admin Trade Name Freq PRN Reason Stop Dose Admin Acetaminophen 1,000 mg 08/14/22 06:00 08/14/22 11:13 Acetaminophen 500 Mg Tab PO 08/14/22 16:00 1,000 mg PREOP JUNG Administration Acetaminophen 650 mg 08/14/22 07:36 Acetaminophen 325 Mg Tab PO Q4H PRN PRN Hydrocodone Bitart/Acetaminophen 0 tab 08/14/22 07:36 Hydrocodone 5/Acetaminophen 325 Tab PO Q3H PRN PRN Pain Celecoxib 400 mg 08/14/22 06:00 08/14/22 11:14 Celecoxib 200 Mg Cap PO 08/14/22 16:00 400 mg PREOP JUNG Administration Gabapentin 300 mg 08/14/22 06:00 08/14/22 11:14 Gabapentin 300 Mg Cap PO 08/14/22 16:00 300 mg PREOP JUNG Administration Ringer's Solution 1,000 mls @ 80 mls/hr 08/14/22 06:00 08/14/22 11:12 IV 09/12/22 23:59 80 mls/hr INFUSION JUNG Administration Cefazolin Sodium/Dextrose 2 gm in 50 mls @ 100 mls/hr 08/14/22 06:00 Ancef Duplex IVPB 08/14/22 16:00 PREOP JUNG IV Miscellaneous Supplies 1 each 08/14/22 06:00 Iv Access IV 09/12/22 23:59 DIRECTED JUNG Sodium Chloride 0 ml 08/14/22 06:00 Normal Saline Flush 10 Ml Syr IV 09/12/22 23:59 PRN PRN Sodium Chloride 0 ml 08/14/22 06:00 Normal Saline 10 Ml Vial IJ 09/12/22 23:59 DIRECTED PRN Sterile Water 0 ml 08/14/22 06:00 Water,Injection,Sterile 10 Ml Vial IJ 09/12/22 23:59 DIRECTED PRN PFSH Active Problems Active Problems: Problem Status Onset Code Painful total knee replacement, right T84.84XA, Z96.651 Arthrofibrosis of total knee arthroplasty T84.82XA Tendinitis of right quadriceps tendon M76.891 Osteopenia M85.80 Right knee pain M25.561 Swelling of lower leg M79.89 Pain of right sacroiliac joint M53.3 Pes anserinus bursitis of right knee M70.51 Glaucoma suspect H40.009 Essential hypertension 03/29/13 I10 History of total right knee replacement (TKR) 07/03/21 Z96.651 Thyroid nodule E04.1 Lesion of face L98.9 Fasciitis M72.9 Balance problem R26.89 Gait abnormality R26.9 Sleep related leg cramps G47.62 Dyspnea on exertion R06.00 Obstructive sleep apnea (adult) (pediatric) G47.33 Urgency of urination R39.15 Hyperlipidemia 03/29/13 E78.5 Hypothyroidism 03/29/13 E03.9 Right carotid bruit 09/01/13 R09.89 Medical History Medical History Bradycardia BB reduced, 2018- [place] Closed fracture of humerus AND SHOULDER Colonoscopy refused Surgical History Surgical History Cyst of Bartholin's gland History of bilateral cataract extraction (~2014) History of breast implant (~1966) History of breast implant removal (~2003) History of total right knee replacement (07/03/21) DOS 07/03/21 Tobacco Smoking/Tobacco Use Status: Never Alcohol Alcohol Intake: never Substance Use Substance use: Never Substance use type: does not use Vital Signs and Lab Results Vital Signs Most Recent Vital Signs in EMR: Most Recent Vital Signs Temp Pulse Resp BP Pulse Ox 37.0 C 52 L 16 185/66 H 98 08/14/22 10:42 08/14/22 10:42 08/14/22 10:42 08/14/22 10:42 08/14/22 10:42 Lab Results Blood Type / Crossmatch: No Data to Display Complete Blood Count: No Data to Display Complete Metabolic Panel: C-Reactive Protein < 0.05 mg/dL (0.0-0.3) 07/24/22 14:32 Liver Function Panel: No Data to Display Coagulation Panel: No Data to Display Cardiac Panel: No Data to Display Arterial Blood Gas: No Data to Display Venous Blood Gas: No Data to Display Pancreas Panel: No Data to Display Thyroid Panel: No Data to Display Infectious Disease: No Data to Display Blood Cultures: No Data to Display Toxicology Panel: No Data to Display Imaging and Studies Imaging and Studies Study information below may be from another EMR and interpreted by another provider. Please see original notes in EMR for more complete details. EKG Summary: DATE/TIME OF SERVICE: 05/25/20 1409 HR:64 bpm ECG Measurements Heart Rate 64 AXIS ID 159 P 69 QRSd 83 QRS 5 QT 420 T9 QTc 434 Conclusion Sinus rhythm...normal P axis, V-rate 50- 99 Stress Test Summary: Date of Exam: 10/24/20Sex: F Admission Date: 10/24/20 : 1945 Exam: Exercise Tr eadmill Indications: Dyspnea on exertion Stress ECG Conclusion 1. The resting electrocardiogram was normal 2. Patient exercised on the Ramesh protocol and completed stage III, a workload of 10.16 METS limited by leg fatigue 3. Heart rate and blood pressure response to exercise. The patient achieved 93% of predicted heart rate for age 4. Echocardiographically there was no evidence of myocardial ischemia 5. PVCs and PACs were noted Echocardiogram Summary: Date of Exam: 05/26/19Sex: F Admission Date: 05/26/19 : 1945 Indications: edema r06.9, palpitations r00.2 hypertension i10 Conclusion Left Ventricle : The left ventricle is normal size. The left ventricular systolic function is normal. Mild left ventricular hypertrophy There is normal LV segmental wall motion. LVEF is 60-65%. There is grade 2 diastolic dysfu nction. Right Ventricle : The right ventricle appears top normal size. The right ventricular systolic function is normal. Atria : The left atrium size is top normal to mildly dialted. The right atrium size is normal. Aortic Valve : Aortic valve is trileaflet. The Aortic valve is sclerotic with focal thickening. Trvial aortic regurgitation by color doppler. sclerosis without stenosis Mitral Valve : Mitral valve leaflets are mildly thickened. Mild mitral regurgitation. No evidence of mitral valve stenosis. Tricuspid Valve : Tricuspid valve leaflets are mildly thickened but open well. Mild tricuspid regurgitation. Great Vessels : The aortic root is normal in size. IVC is normal in size and collapses >50% with inspiration. Estimated RVSP is 32-36 mmHg. There is no prior echocardiogram available for comparison. Carotid Artery Summary:: Date of Exam: 01/07/20 EXAM: US CAROTID CLINICAL HISTORY: HX Bruit, r/o stenosis, RT CAROTID BRUIT, R09.89. RIGHT CAROTID ARTERY: Plaque: Minimal calcific plaque in the right bulb. Velocity elevation: None. LEFT CAROTID ARTERY: Plaque: Minimal. Velocity elevation: None. VERTEBRAL ARTERIES: Antegrade flow. IMPRESSION: No evidence for hemodynamically significant carotid stenosis. Criteria for Carotid Stenosis: Normal: ICA PSV <125 cm/s no plaque or intimal thickening is visible. <50% stenosis: ICA PSV <125 cm/s and plaque or intimal thickening is visible. 50-69% stenosis: ICA PSV is 125-250 cm/s and plaque is visible. >70% stenosis to near occlusion: ICA PSV >250 cm/s with visible plaque and luminal narrowing. Anesthesia Assessment and Plan Anesthesia History Personal History: No History of General Anesthesia Family History: No Family History of Anesthesia Complications Exercise Tolerance Exercise Tolerance: Metabolic Equivalents>4 Pertinent Negatives Pertinent Negatives: No Symptoms of GERD, No Major Cardiovascular Symptoms or Complaints and No History of CVA/TIA Cardiac & Pulmonary Exam Cardiac Exam: Normal S1/S2 Heart Sounds Pulmonary Exam: Clear Bilateral Breath Sounds Implantable Cardiac Device Does patient have a Pacemaker or an ICD?: No Airway Exam Known Difficult Airway: No Mallampati Class: 2 Mouth Opening: Normal (> 3cm) Thyromental Distance: Greater than 3 cm Neck Range of Motion: Full ROM Neck Circumference: Normal Teeth Condition: Normal Dentition ASA Classification ASA Score: ASA 3 Emergency Case?: No NPO Status NPO Status: NPO Clears >2 hours, Solids >8 hours Anesthesia Plan Resuscitation Status: Full Code Anesthesia Technique: General Anesthesia Airway Planned: LMA Monitors Used: Standard Monitors Preoperative Comments:: LIN wears cpap, chronic HTN
[2022-08-14] MEDS: ceFAZolin 2 GM/50 ML BAG IVPB (12:00)
[2022-08-14] MEDS: EPINEPHrine 30 MG/30 ML VIAL (12:25)
[2022-08-14] MEDS: Bupivacaine 0.5% Pres-Free 30 ML VIAL (12:27)
--- NOTE | 2022-08-14 13:22 | ROE_ITS ---
Date of service: 08/14/22 Time of Service: 12:45 Operative Note Operative Note DATE OF PROCEDURE: 08/14/22 PRE-OP DIAGNOSIS: Painful Right Knee Replacement with Arthrofibrosis POST-OP DIAGNOSIS: same PROCEDURE: Arthroscopic Synovectomy of 3 Compartments - Right Knee SURGEON: Edward Kirby ANESTHESIA TYPE: General LMA/ETT Refer to Anesthesia Record ESTIMATED BLOOD LOSS: 5 PATHOLOGY: none sent TOURNIQUET TIME: 0 COMPLICATIONS: None Patient was transported to: PACU Patient's condition: stable Indications: I have seen aDnitza in clinic for symptoms of arthrofibrosis and pain of the knee following knee replacement surgery. Nonoperative measures were exhausted but disability due to lack of motion persisted. I discussed knee arthroscopy with synovectomy with the patient. I reviewed the risks of the procedure to include, but not limited to, bleeding, infection, pain, continued stiffness, recurrence, blood clot. Despite these risks, the patient elected to proceed. Findings: Dense scarring was apparent in the supererior space. There was thickened and frayed tissue at the lateral and medial joint lines. This was worse laterally. A complete synovectomy was performed superiorly, around the patella, and medially and laterally. Procedure Description: Danitza was greeted in the preoperative holding area where the correct side was identified and marked. The consent was reviewed with the patient and si gned. The history and physical was updated. All questions were answered. She was taken back to the operating room. The patient was placed into the supine position on the operating room table. All bony prominences were well padded. Prophylactic antibiotics in the form of Cefazolin were administered. The right leg was then prepped with Chloraprep and draped in a standard fashion with stockinette and extremity drape. A timeout to confirm correct identity, side and site, procedure, allergies, anesthesia, and medical concerns was performed. The leg was placed into a pneumatic leg grant, [id number]. A standard lateral portal was made at the lateral border of the patella tendon in line with the inferior pole of the patella, soft spot. The skin and deep tissue was incised sharply and the blunt trochar was inserted atraumatically. At this point had visualization of the femoral component. A superolateral portal was then established with spinal needle localization just superior and lateral to the patella. A knife was taken down through the skin and soft tissue to enter the knee joint. Starting in the superior compartment above the femoral component and anterior to the femur I released all scarring between the anterior femoral synovium and the overlying extensor mechanism. This was taken through all of any noticeable scar tissue until the superior patellar pouch was fully released and mobile. This resection was carried out mostly with electrocautery as well as shaver. Once this was released fully from lateral to medial superiorly I then continue working down the lateral gutter. All scar tissue in the lateral gutter was released so there is normal space and movement between the capsular tissues and the edge of the femoral component and femur. This was taken down th rough the lateral gutter such that I was able to identify the polyethylene to its posterior corner. Once again, all scar tissue in this area was resected so the polyethylene was easily visible and there is no interposed tissue in the back or the polyethylene was identified. I think continue to work anteriorly. To continue the synovectomy from the lateral compartment to the anterior compartment into the medial compartment, I placed a medial portal under spinal needle localization. Once this was in place it became another working portal and I continued the synovectomy through the anterior compartment to the medial compartment. Once again, I freed up the medial gutter so I was able to visualize the polyethylene from the anterior posterior margins. There is no interposed tissue after full synovectomy was performed. Adhesions between the capsule and the femur were released. This was continued up the medial gutter until it met up with the releases performed previously in the superior compartment. Any remnant scar tissue from around the patella was then removed with a shaver and electrocautery. The arthroscope was brought back into the suprapatellar pouch and the leg was in full extension. The knee was thoroughly irrigated with the arthroscopic fluid on high flow and pressure. Inflow was stopped and excess fluid was removed. The wounds were closed with 4-0 Nylon. 0.25% ropivacaine was injected around the portal sites and into the knee. The wounds were dressed with Xeroform, 4x4 gauze, ABD pad, Kerlix and an GRIS wrap. A cryo-cuff was applied. The patient tolerated the procedure well and was returned to the Same Day Surgery area in a stable condition suffering no known complication..
--- NOTE | 2022-08-14 14:34 | W.ANESPOSTOP ---
Postoperative Evaluation Date, Time and Location Date Performed: 08/14/22 Time Performed: 14:34 Patient Location: Day Surgery Unit Vital Signs Most Recent Imported Vital Signs: Most Recent Vital Signs Temp Pulse Resp BP Pulse Ox 36.5 C 56 L 16 167/59 H 99 08/14/22 14:10 08/14/22 14:10 08/14/22 14:10 08/14/22 14:10 08/14/22 14:10 Pain Score Most Recent Pain Score: Most Recent Pain Score Pain Level 2 08/14/22 14:10 Assessment Mental Status: Awake (Alert & Oriented to Patient Baseline) Airway and Respiratory Function: Patent airway with normal (patient baseline) respiratory exam Cardiovascular Function: Hemodynamically Stable Hydration Status: Adequately Hydrated Nausea & Vomiting: No Nausea or Vomiting Pain: Pain is tolerable per patient Peripheral Nerve Block: Patient did not receive a nerve block
== END 2022-08-14 14:45 | disposition home or self-care (01) ==
PROVIDERS: PCP Student in an Organized Health Care Education/Training Program; Visit Provider Student in an Organized Health Care Education/Training Program
PROC: (CPT 29870; principal; 2022-08-14 12:00)
DX: T84.84XA Pain due to internal orthopedic prosthetic devices, implants and grafts, initial encounter (principal); T84.82XA Fibrosis due to internal orthopedic prosthetic devices, implants and grafts, initial encounter; Z96.651 Presence of right artificial knee joint
CPT/HCPCS: 29876; J0690; J1100; J2405; J2704

== ENCOUNTER → 2022-08-26 09:46 | Outpatient (BNVA) | payer MEDICARE, SELFPAY | PROVIDERS: PCP Student in an Organized Health Care Education/Training Program; Referring Provider Student in an Organized Health Care Education/Training Program | DX: Z96.651 Presence of right artificial knee joint (principal); T84.84XA Pain due to internal orthopedic prosthetic devices, implants and grafts, initial encounter; T84.82XA Fibrosis due to internal orthopedic prosthetic devices, implants and grafts, initial encounter ==

== ENCOUNTER 2022-08-28 02:45 | Outpatient (CLI) | payer MEDICARE, SELFPAY ==
[2022-08-28 12:32] LABS: BUN 15 mg/dL (7-18); CREATININE 0.8 mg/dL (0.55-1.02); Calcium 8.9 mg/dL (8.5-10.1); Chloride 105 mmol/L (98-107); Estimated GFR 75.84 (mL/min/1.73m2); Glucose 108 mg/dL (74-106); Potassium 3.7 mmol/L (3.5-5.1); Sodium 143 mmol/L (136-145)
== END 2022-08-28 02:46 | disposition home or self-care (01) ==
LOC: LOS 02:45
PROVIDERS: PCP Student in an Organized Health Care Education/Training Program; Visit Provider Student in an Organized Health Care Education/Training Program
DX: E87.6 Hypokalemia (principal); R25.2 Cramp and spasm; I10 Essential (primary) hypertension; R60.0 Localized edema
CPT/HCPCS: 36415; 80048

== ENCOUNTER 2022-09-13 00:55 | Outpatient (CLI) | payer MEDICARE, SELFPAY ==
--- NOTE | 2022-09-13 07:30 | DI.US_ITS ---
Exam(s) US THYROID EXAM: US THYROID CLINICAL HISTORY: re-evaluate thyroid nodule, e04.1. TECHNIQUE: Ultrasound thyroid performed using standard protocol. COMPARISON: US US THYROID from 08/27/2021 FINDINGS: ISTHMUS: 3 mm. The 0.5 x 0.2 x 0.4 cm nodule in the isthmus is unchanged. It is isoechoic and solid . It is consistent with a TI rads level 3. Due to its size, no follow-up is recommended. RIGHT LOBE: Size: cm Echogenicity: Normal. Vascularity: Normal. Nodules: There is a stable 0.3 cm nodule in the right thyroid gland. It is solid, homogeneous and hy poechoic. No internal echogenic foci are seen. This is consistent with a TI rads level 4 nodule. D ue to its size, no follow-up is recommended. There is also a calcifications seen in the right thyroi d gland which is unchanged. LEFT LOBE: Size: cm Echogenicity: Normal. Vascularity: Normal. Nodules: The 1.2 x 1.3 cm solid isoechoic nodule in the left lobe of the thyroid gland is unchanged i n size or appearance. No echogenic foci are seen. The margins are smooth. This is consistent with a TI rads level 3 nodule. Due to its size, no follow-up is recommended. OTHER FINDINGS: None. IMPRESSION: Stable thyroid nodules. DATA REPOSITORY:
== END 2022-09-13 01:15 ==
LOC: DI 00:56
PROVIDERS: PCP Student in an Organized Health Care Education/Training Program; Visit Provider Student in an Organized Health Care Education/Training Program
DX: E04.2 Nontoxic multinodular goiter (principal)
CPT/HCPCS: 76536

== ENCOUNTER 2023-01-17 00:11 | Outpatient (CLI) | payer MEDICARE, SELFPAY ==
--- NOTE | 2023-01-17 07:00 | DI.US_ITS ---
Exam(s) US CAROTID EXAM: US CAROTID CLINICAL HISTORY: evaluate for stenosis,rt carotid bruit,r09.89. TECHNIQUE: Ultrasound carotids performed using grayscale, color-flow, and spectral Doppler imaging. COMPARISON: US US THYROID from 09/13/2022 FINDINGS: CAROTID ARTERIES: There is some plaque evident the level the carotid bulbs both without elevated velocities at nor dist al to the plaque. Mild plaque also evident proximal internal carotid arteries, also without elevated velocities. VERTEBRAL ARTERIES: Antegrade flow demonstrated in both vertebral arteries. Measurements: R Bulb: 67.3cm/s PS / 18.3cm/s ED R CCA: 58.9cm/s PS / 13cm/s ED R ECA: 95.4cm/s PS / 7.2cm/s ED R ICA Prox: 57.5cm/s PS / 14.1cm/s ED R ICA Mid: 59.2cm/s PS / 14.7cm/s ED R ICA Distal: 84cm/s PS /21.8cm/s ED R Vert: 37.1cm/s PS / 11.9cm/s ED R SVR: 1.4 R DVR: 1.7 L Bulb: 63.8cm/s PS / 12.1cm/s ED L CCA: PS / 14.1cm/s ED L ECA: 77.5cm/s PS / 7.5cm/s ED L ICA Prox: 78.8cm/s PS / 19.6cm/s ED L ICA Mid: 82.6cm/s PS / 21.5cm/s ED L ICA Distal: 63.8cm/s PS / 5.5cm/s ED L Vert: 55.6cm/s PS / 9.7cm/s ED L SVR: 1.1 L DVR: 1.5 IMPRESSION: Some plaque in both carotid arteries but no elevated velocities. Estimated stenosis less than 40 per cent bilaterally. Antegrade flow is demonstrated in both vertebral arteries. Criteria for Carotid Stenosis: Normal: ICA PSV <125 cm/s no plaque or intimal thickening is visible. <50% stenosis: ICA PSV <125 cm/s and plaque or intimal thickening is visible. 50-69% stenosis: ICA PSV is 125-250 cm/s and plaque is visible. >70% stenosis to near occlusion: ICA PSV >250 cm/s with visible plaque and luminal narrowing. DATA REPOSITORY:
== END 2023-01-17 00:31 ==
LOC: DI 00:11
PROVIDERS: PCP Student in an Organized Health Care Education/Training Program; Visit Provider Student in an Organized Health Care Education/Training Program
DX: I65.23 Occlusion and stenosis of bilateral carotid arteries; R09.89 Other specified symptoms and signs involving the circulatory and respiratory systems
CPT/HCPCS: 93880

== ENCOUNTER → 2023-02-18 01:36 | Outpatient (CLI) | payer MEDICARE, SELFPAY ==
--- NOTE | 2023-02-18 11:25 | DI.MAMMO_ITS ---
Exam(s) MAMMO SCREENING EXAM: MAMMO SCREENING CLINICAL HISTORY: screening, Z12.39 TECHNIQUE: Mammograms were interpreted according to the usual protocol including computer analysis w [employer] CAD system, tomosynthesis and C-view imaging. COMPARISON: FINDINGS: The breasts are composed of heterogeneously dense fibroglandular densities, Breast Density category C . No suspicious masses or suspicious microcalcifications are seen. No skin thickening or abnormal axillary lymph nodes are seen. There has been no significant change from prior exams. IMPRESSION: BI-RADS Category 1, Negative mammogram. Yearly screening mammography is recommended. Breast Density Category C, heterogeneously Dense. The mammogram demonstrates the patient's breast tissue is dense. Dense breast tissue is very common a nd is not abnormal but dense breast tissue can make it harder to find cancer on a mammogram. Also, de nse breast tissue may increase breast cancer risk. This information about the result of the mammogram report was provided to the patient to raise their awareness. Use this report when you speak with the patient about their risks for breast cancer, which includes their family history. At that time, you may recommend additional screening tests (Ultrasound or MRI) as they might be useful based on their r isk. A negative radiographic report should not delay biopsy if a dominant or clinically suspicious mass is present. Up to ten percent of cancers are not identified on mammography. A negative report may reinforce clinical impression. Adenosis and dense breasts may obscure an underlying neoplasm. False positive reports average 6 to 10%.
== END ==
PROVIDERS: PCP Student in an Organized Health Care Education/Training Program; Visit Provider Student in an Organized Health Care Education/Training Program
DX: Z12.31 Encounter for screening mammogram for malignant neoplasm of breast (principal)
CPT/HCPCS: 77063; 77067

== ENCOUNTER → 2023-05-02 00:13 | Outpatient (CLI) | payer MEDICARE, SELFPAY ==
--- NOTE | 2023-05-02 10:13 | DI.DEXA_ITS ---
Exam(s) XR DEXA BONE DENSITY W/WO MARIELLE EXAM: XR DEXA BONE DENSITY W/WO MARIELLE CLINICAL HISTORY: eval bone density,SCREENING FOR OSTEOPOROSIS IN POSTMENOPAUSAL WOMAN,Z78.0 TECHNIQUE: [employer] C densitometer analysis of left hip and lumbar spine. Forearm measureme nts could not be obtained due to bilateral wrist fractures. Lateral survey image of the thoracic and lumbar spine. COMPARISON: CR XR DEXA BONE DENSITY W/WO MARIELLE from 04/19/2021 FINDINGS: Lateral view of the thoracic and lumbar spine shows no evidence of compression fractures. Bone mineral density measurements of the lumbar spine correspond to a total T-score of -1.2, in the osteopenic range. This is not significantly changed from prior. Bone mineral density measurements of the left hip correspond to a total T-score of -1.1. The total bone mineral density is decreased by 4.1 percent since 2020. The femoral neck T-score is -1.9, in t he osteopenic range.. IMPRESSION: Stable osteopenia of the lumbar spine. Osteopenia of the left hip with mild decrease from 2020.
== END ==
PROVIDERS: PCP Student in an Organized Health Care Education/Training Program; Visit Provider Student in an Organized Health Care Education/Training Program
DX: M85.89 Other specified disorders of bone density and structure, multiple sites (principal); Z78.0 Asymptomatic menopausal state; Z13.820 Encounter for screening for osteoporosis
CPT/HCPCS: 77080

== ENCOUNTER 2023-05-02 01:19 | Outpatient (CLI) | payer MEDICARE, SELFPAY ==
[2023-05-02 09:52] LABS: Hemoglobin A1C 5.9 % (<5.7)
[2023-05-02 10:02] LABS: ALT 22 U/L (14-59); AST 15 U/L (15-37); Albumin 3.9 g/dL (3.4-5.0); Alkaline Phosphatase 79 U/L (46-116); Anion Gap 9.5 mmol/L (3-11); BUN 16 mg/dL (7-18); Bilirubin, Total 0.4 mg/dL (0.2-1.0); CO2 29.5 mmol/L (21.0-32.0); Calcium 9.1 mg/dL (8.5-10.1); Calculated LDL 134 mg/dL (<100); Chloride 104 mmol/L (98-107); Cholesterol 227 mg/dL (<200); Estimated GFR 57.66 (mL/min/1.73m2); Glucose 102 mg/dL (74-106); HDL Cholesterol 76 mg/dL (40-60); Magnesium 2.1 mg/dL (1.8-2.4); Sodium 143 mmol/L (136-145); TSH (W/Ref FT4) 1.59 uIU/mL (0.36-3.74); Total Protein 7.6 g/dL (6.4-8.2); Triglyceride 86 mg/dL (<150)
== END 2023-05-02 01:20 | disposition home or self-care (01) ==
PROVIDERS: PCP Student in an Organized Health Care Education/Training Program; Visit Provider Student in an Organized Health Care Education/Training Program
DX: E03.9 Hypothyroidism, unspecified (principal); R09.89 Other specified symptoms and signs involving the circulatory and respiratory systems; T50.2X5A Adverse effect of carbonic-anhydrase inhibitors, benzothiadiazides and other diuretics, initial encounter; Z91.89 Other specified personal risk factors, not elsewhere classified; I10 Essential (primary) hypertension; R73.9 Hyperglycemia, unspecified; Z13.220 Encounter for screening for lipoid disorders; R73.09 Other abnormal glucose
CPT/HCPCS: 36415; 77080; 80053; 80061; 83036; 83735; 84443

== ENCOUNTER → 2023-05-13 00:25 | Outpatient (CLI) | payer MEDICARE, SELFPAY ==
--- NOTE | 2023-05-13 10:23 | DI.RAD_ITS ---
Exam(s) XR HIP RT COMPLETE AP PELVIS EXAM: XR HIP RT COMPLETE AP PELVIS CLINICAL HISTORY: eval acute hip pain post overwork,m25.551. TECHNIQUE: 2D digital imaging was performed. COMPARISON: No exams were available for comparison FINDINGS: Two views: No evidence of pelvic nor hip fracture. No hip joint space narrowing on either side. Additional lat eral view of the right hip appears unremarkable. No osteophytes. SI joints appear unremarkable. Vinicio ne density is normal. No osseous lesions. IMPRESSION: No significant osseous findings in the pelvis and hips. DATA REPOSITORY: RADIATION DOSE DELIVERED:
--- NOTE | 2023-05-13 10:23 | DI.RAD_ITS ---
Exam(s) XR LUMBAR SPINE COMP W FLEX/EX EXAM: XR LUMBAR SPINE COMP W FLEX/EX CLINICAL HISTORY: eval acute rt lumbar pain post overwork,. TECHNIQUE: 2D digital imaging was performed. COMPARISON: CR XR DEXA BONE DENSITY W/WO MARIELLE from 05/02/2023 FINDINGS: Seven views; including flexion-extension lateral views. There is no evidence of fracture. There is degenerative anterolisthesis of L4 upon L5, with 9 mm ant erior slippage of L4 upon L5 which is similar with flexion and extension and not associated with sign ificant disc space narrowing at this level. The slippage is related to advanced facet arthropathy at this level. There is no listhesis at L5 S1 level. No L5 pars defects. There is disc space narrowing at L1-2 lev el noted. L2-3 and L3-4 and T12-L1 levels exhibit normal disc height. There is only mild facet arth ropathy with the exception of L5-S1 where there is advanced arthropathy of the facet joints. Calcification in the abdominal aorta is noted as well as within the common iliac arteries IMPRESSION: There is degenerative anterolisthesis of L4 upon L5, proximally 9 mm anterior slippage of L4 upon L5, this related to degenerative facet arthrosis at this level. Also significant disc space narrowing at L1-2 level, without listhesis at this level. Mild scoliosis convex left. DATA REPOSITORY: RADIATION DOSE DELIVERED:
== END ==
PROVIDERS: PCP Student in an Organized Health Care Education/Training Program; Visit Provider Student in an Organized Health Care Education/Training Program
DX: M25.551 Pain in right hip (principal); M43.16 Spondylolisthesis, lumbar region; M41.86 Other forms of scoliosis, lumbar region
CPT/HCPCS: 72114; 73502

== ENCOUNTER 2023-05-13 18:12 | Outpatient (REF) | payer MEDICARE, SELFPAY | END 2023-05-13 18:13 | disposition home or self-care (01) | LOC: LBN 18:12 | PROVIDERS: PCP Student in an Organized Health Care Education/Training Program; Visit Provider Student in an Organized Health Care Education/Training Program | DX: K92.1 Melena (principal); K92.2 Gastrointestinal hemorrhage, unspecified; M25.551 Pain in right hip; R13.10 Dysphagia, unspecified; Z71.89 Other specified counseling | CPT/HCPCS: 82272 ==

== ENCOUNTER → 2023-05-28 02:35 | Outpatient (CLI) | payer MEDICARE, SELFPAY ==
[2023-05-28] MEDS: Barium Sulfate 40% W/V 240 ML BTL PO (15:04)
--- NOTE | 2023-05-28 15:05 | DI.RAD_ITS ---
Exam(s) RF MODIFIED SPEECH BA SWALLOW TECHNIQUE: Modified barium swallow was performed in conjunction with speech pathology. CONTRAST MATERIAL: Multiple consistencies of oral barium contrast were administered. COMPARISON: No exams were available for comparison FINDINGS: There is no evidence of aspiration or penetration with any consistency. No significant residue in th e vallecula or piriform sinuses. Mildly narrowing lower esophageal ring. The barium tablet passed through this location. Speech pathology report to follow. IMPRESSION: No evidence of aspiration or penetration. Mildly narrowing lower esophageal ring. RADIATION DOSE DELIVERED: timothy Nath=15.3 mGy
[2023-05-28] MEDS: Barium Sulfate 700 MG TAB PO (15:06)
[2023-05-28] MEDS: Barium Sulfate Oral Paste 40% W/V 230 ML TUBE PO (15:08)
[2023-05-28] MEDS: Barium Sulfate 81% w/w for Oral Suspension 148 GM BTL PO (15:09)
--- NOTE | 2023-05-28 15:29 | ST.MBS ---
Date of Service Date of service: 05/28/23 Time of Service: 14:30 Modified Barium Swallow Study Findings: Video fluoroscopic Swallowing Evaluation (VFSE) / Modified Barium Swallow Study (MBSS) Speech Language Pathology Report Patient referred for VFSE/MBSS from Dr. Ventura given progressive dysphagia to solids with sensation of esophageal residue leading to weight loss. HPI & Patient report of function: Patient is a 77 y/o year old F with increasing solid food dysphagia requiring more and more water to clear painful sensation from chest with meals, leading to premature fullness and unintentional weight loss. She denies difficulty with liquids, denies sensation of aspiration, coughing, choking history. Denies pharyngeal residue. Denies difficulty chewing. Denies significant reflux sx. IMPRESSIONS: Swallow safety is preserved; swallow efficiency is impaired. Mild-Moderate esophageal dysphagia characterized by distal esophageal retention of solid/dry bolus with compounding residue as additional bolus are swallowed, requiring liquid to clear. Per radiologist's report, there is presence of mildly narrowing lower esophageal ring. Patient was able to pass barium tablet into stomach taken with thin liquid. No penetration, aspiration, or significant pharyngeal deficits noted. Not noting presence of pharyngo-esopheagal abnormalities or stricture. Patient appears to be at low risk for potential aspiration PNA and/or pulmonary compromise and moderate risk for malnutrition, low risk for dehydration. Risk can be mitigated with use of diet modifications as below. Suggest GI referral to address distal esophageal abnormalities. Diet modification is indicated; non-oral nutrition is not indicated. Swallow prognosis is good given: ability to tolerate most liquid and solid textures, cognitive status. The following recommendations were provided to patient at the end of the exam this date. 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 RECOMMENDATIONS: Diet Texture Recommendation:? IDDSI LEVEL SOLIDS 5-Minced & Moist Solids 4-Pureed Solids 3-Liquidised Solids LIQUIDS 0-Thin Liquids Please see further details at?[email or web address].iddsi.org MEDICATIONS Whole or Cut, as able with 0-Thin Liquids Do not alter medications (e.g., cut)? without advice from your MD or pharmacist. Risk Management Strategies:? Behavioral reflux precautions, including upright position during + 90 mins after meals. Small bites, approx [id number] Alternate solids/liquids as able PFSH All Active Problems (Updated 12/22/22 @ 19:48 by Amalia Ventura, DO) Weight loss, unintentional (Acute) 2' dysphagiaArthralgia of right side of pelvis (Acute) SI Joint? 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 & OUTER LFT, mid-calf, nodular w/sunken, twisted appearance.Painful total knee replacement, right (Acute) Arthrofibrosis of total knee arthroplasty (Acute) Status post arthroscopic synovectomy DOS: 08/14/2022Tendinitis of right quadriceps tendon (Acute) Osteopenia (Acute) 2020 Bone Density Rpt. 2019 DEXARight knee pain (Acute) Much better post arthroplasty, 08/2022! tightness across as band .. Hx fluid retention in knee as well as LESwelling of lower leg (Acute) R>LPain of right sacroiliac joint (Acute) Pes anserinus bursitis of right knee (Acute) Glaucoma suspect (Acute) [place]ential hypertension (Acute 03/29/13) Glucose screen q3yr 10Thyroid nodule (Acute) Stable, 09/2022. [ ] YEARLY US ..ID/Measured on US, 08/2021 .. WNL. FU 1 yr. Incidental Left lobe on Carotid u/s 01/07/20Fasciitis (Acute) R>LBalance problem (Chronic) NEG findings, PT and Neuro. Assoc w/ instability of rt knee? Hx Dizziness (vs Neuro?)Gait abnormality (Acute) Sleep related leg cramps (Acute) 03/23/20 sleep clinicDyspnea on exertion (Acute) Obstructive sleep apnea (adult) (pediatric) (Chronic) 03/23/20 sleep clinicUrgency of urination (Acute) Hx leaking; Bladder Training working well.Hyperlipidemia (Acute 03/29/13) Hypothyroidism (Acute 03/29/13) Right carotid bruit (Acute 09/01/13) doppler us.03/17 <10% 01/07/20 mild plaque rgt bulg, b/l antegrade vertebral artery flow michelleen Medical History (Updated 05/09/23 @ 11:38 by Amalia Ventura DO) Colonoscopy refused Does Cologuard (2009 Neg), [ ] 2022Lesion of face Rt cheek, red asymm pedunculated papule, w/ Hx cut horn-like description (pt cut hard growth).Bradycardia BB reduced, ikClosed fracture of humerus AND SHOULDER Surgical History (Updated 12/17/22 @ 15:26 by Magdalene Marte RN) History of total right knee replacement (TKR) (07/03/21) History of total right knee replacement (07/03/21) DOS 07/03/21History of bilateral cataract extraction (~2014) w/ lens implantsCyst of Bartholin's gland History of breast implant removal (~2003) History of breast implant (~1966) ----- OBJECTIVE Videofluoroscopic Swallow Evaluation (VFSE/MBSS) was conducted in the lateral[ and [id number]] projection by Speech-Language Pathologist, in collaboration with Radiologist, to evaluate oropharyngeal swallow function. Anatomic view under fluoroscopy: WFL except comments noted in radiologist report (separate) PO Barium Contrast Trials Oral barium water-soluble contrast was administered as follows: IDDSI Level 0 Varibar thin liquid (40% w/v) IDDSI Level 2 Varibar nectar thick/mildly thick liquid (40% w/v) IDDSI Level 4 Varibar pudding/pureed/extremely thick (40% w/v) IDDSI Level 7 Regular Solid: 1/2 rebeca cracker coated in 3 mL Varibar pudding 13 mm barium tablet taken with Thin Liquids. MBSImP Component Scores: COMPONENT Scale SCORE 1 Lip closure (0-4) 0 Resulted in no labial escape 2 Hold Position (0-3) 0 Maintained a cohesive bolus between tongue to palatal seal 3 Bolus Preparation (0-4) 0 Resulted in timely and efficient chewing and mashing 4 Bolus Transport (0-4) 0 Was with brisk tongue motion 5 Oral Residue (0-4) 1 Was a trace, lining oral structures 6 Swallow Initiation (0-4) 2 Occurred as bolus head at posterior laryngeal surface of epiglottis 7 Soft Palate Elevation (0-4) 0 Resulted in no bolus between soft palate and the pharyngeal wall 8 Laryngeal Elevation (0-3) 0 Demonstrated complete superior movement of thyroid cartilage with complete approximation of arytenoids to epiglottic petiole 9 Anterior Hyoid Motion (0-2) 0 Demonstrated complete anterior movement 10 Epiglottic Movement (0-2) 0 Resulted in complete inversion 11 Laryngeal Closure (0-2) 0 Was complete with no air or contrast in laryngeal vestibule 12 Pharyngeal Stripping Wave (0-2) 0 Was present and complete 13 Pharyngeal Contraction (0-3) 0 Was complete 14 PES Opening (0-3) 0 Was completely distended and complete duration with no obstruction of flow 15 Tongue Base Retraction (0-4) 0 Allowed no contrast between the tongue base and posterior pharyngeal wall 16 Pharyngeal Residue (0-4) 1 Showed a trace within or on pharyngeal structures 17 Esophageal Clearance (0-4) 2 Resulted in esophageal retention with retrograde flow below pharyngoesophageal segment Results: COMPONENT Scale SCORE 1 Oral Score (0-18) 2 2 Pharyngeal Score (0-29) 0 3 Esophageal Score (0-4) 2 Dysphagia Outcome and Severity Scale: COMPONENT Scale SCORE 1 LEVEL (1-7) 5 Full PO: Modified Diet and/or [place] - Mild dysphagia; Distant supervision may need 1 diet consistency restricted Penetration-Aspiration Scale: COMPONENT Scale SCORE 1 Thin liquid (1-8) 1 Contrast did not enter the airway 2 [place] thick (1-8) 1 Contrast did not enter the airway 3 Honey thick (1-8) NA 4 Pudding thick (1-8) 1 Contrast did not enter the airway 5 Cookie (1-8) 1 Contrast did not enter the airway Trialed Compensatory Strategies & Outcome: Bolus Modifications Successful (+) Unsuccessful (-) Delivery/Alternating Consistencies ? Follow with Liquid Wash + ? Follow with Solid Bolus? Delivery/Via Straw? ? Reduced Volume? ? Reduced Rate of Intake? ? Increased Viscosity? ? Other:?? ? Thank you for allowing us to take part in this patient's care. Please feel free to contact the [facility] Speech Language Pathology Department with any questions/concerns. Coding CPT Codes MOTION FLUOROSCOPY/SWALLOW - [id number] ([id number])
== END ==
PROVIDERS: PCP Student in an Organized Health Care Education/Training Program; Visit Provider Student in an Organized Health Care Education/Training Program
DX: R13.10 Dysphagia, unspecified (principal); R63.4 Abnormal weight loss; T17.308A Unspecified foreign body in larynx causing other injury, initial encounter
CPT/HCPCS: 92526; 92611; 74221

== ENCOUNTER 2023-09-19 02:43 | Outpatient (CLI) | payer MEDICARE, SELFPAY ==
[2023-09-19 10:03] LABS: Hemoglobin A1C 5.9 % (<5.7)
[2023-09-19 10:05] LABS: Anion Gap 11.2 mmol/L (3-11); BUN 19 mg/dL (7-18); CO2 29.8 mmol/L (21.0-32.0); CREATININE 0.9 mg/dL (0.55-1.02); Calcium 8.9 mg/dL (8.5-10.1); Chloride 104 mmol/L (98-107); Estimated GFR 65.44 (mL/min/1.73m2); Glucose 106 mg/dL (74-106); Potassium 3.5 mmol/L (3.5-5.1); Sodium 145 mmol/L (136-145)
== END 2023-09-19 02:44 | disposition home or self-care (01) ==
LOC: LBO 02:44
PROVIDERS: PCP Student in an Organized Health Care Education/Training Program; Visit Provider Student in an Organized Health Care Education/Training Program
DX: R73.09 Other abnormal glucose (principal); I10 Essential (primary) hypertension
CPT/HCPCS: 36415; 80048; 83036

== ENCOUNTER → 2023-11-21 07:43 | Outpatient (BNVA) | payer MEDICARE, SELFPAY | PROVIDERS: PCP Student in an Organized Health Care Education/Training Program; Referring Provider Student in an Organized Health Care Education/Training Program | DX: M53.3 Sacrococcygeal disorders, not elsewhere classified (principal); M54.50 Low back pain, unspecified; M70.61 Trochanteric bursitis, right hip | CPT/HCPCS: 99214 ==

== ENCOUNTER 2024-05-06 11:12 | Outpatient (CLI) | payer MEDICARE, SELFPAY ==
[2024-05-06 11:19] VITALS: BP 148/68; PULSE 55; RESP 20; TEMP 36.7; O2SAT 96
[2024-05-06 11:38] VITALS: PULSE 58; RESP 21; O2SAT 98
[2024-05-06 11:39] VITALS: BP 211/77; PULSE 57; PULSE 60; RESP 12; O2SAT 98
[2024-05-06 11:40] VITALS: PULSE 57; RESP 14; O2SAT 98
[2024-05-06 11:46] VITALS: BP 186/79; PULSE 58; PULSE 60; RESP 16; O2SAT 97
--- NOTE | 2024-05-06 11:50 | DI.RAD_ITS ---
Exam(s) XR PAIN CLINIC SACRIOILIAC 2V EXAM: XR PAIN CLINIC SACRIOILIAC 2V CLINICAL HISTORY: DX: Sacroiliac Dysfunction. TECHNIQUE: Fluoroscopy was provided for the referring physician for guidance with performing pain cl inic injection procedure. COMPARISON: No exams were available for comparison FINDINGS: Please see procedure note for details. Fluoro time: 15.4 seconds RADIATION DOSE DELIVERED: Ka,r=3.51 mGy
--- NOTE | 2024-05-06 11:51 | PDOC.PAIN ---
Date of service: 05/06/24 Time of Service: 11:51 Pain Managment Procedure Note Procedure Note Procedure Note: PROCEDURE NOTE RIGHT INTRA-ARTICULAR SACROILIAC JOINT INJECTION Date of Service: May 06, 2024 Patient: Danitza Berrios Provider: Sreekanth Long DO, MPH COMMENTS: I previously evaluated the patient in the office and their symptoms in relation to the sacroiliac joint pain have remained the same. Pre-operative diagnosis: Sacroiliac joint dysfunction ICD-10 M53.3 Post-operative diagnosis: Same Pre-procedure pain: VAS= 3/10 Danitza Berrios has been referred to our [facility] for a Right intra-articular Sacroiliac joint injection. Danitza was interviewed and the medical record reviewed. There were no medical, pharmacologic, radiographic or other structural contraindications to attempting a fluoroscopically-guided, contrast-enhanced, intra-articular Sacroiliac joint injection. The risks, benefits, and potential side effects of this procedure were reviewed with the patient. Questions and concerns were addressed. After it was clear that Danitza was fully informed about the procedure, the printed consent form was signed by the patient and myself. Danitza was placed in the prone position on the fluoroscopy table and an automated blood pressure cuff, 3 lead EKG, and pulse oximeter were applied. The skin entry point for approaching the Right sacroiliac joint was identified under the most advantageous fluoroscopic view and marked. Following thorough Chlorhexadine preparation of the skin and draping with sterile surgical drapes, 2 mls of 1% lidocaine was infiltrated into the skin at the entry point and the surrounding subcutaneous tissues. Next, a 3.5 22G spinal needle was placed under fluoroscopic guidance into the Right sacroiliac joint. Intra-articular placement was confirmed by a clear arthrogram resulting from the injection of 0.25ml of Omnipaque-240. Next, 1 ml of Depo- Medrol 80 mg/ml was injected intra-articularly with an initial reproduction of a significant component of the usual pain. This was followed with 1 ml of 1% Lidocaine. The needle was then removed without difficulty. (49 ml of Omnipaque-240 was wasted). Danitza's vital signs were stable throughout the procedure and were as recorded in nursing records. Follow up plans and appointments were discussed with Danitza. Post procedure instructions were given as documented in nursing records. Having met discharge criteria, Danitza was discharged from the [facility]. COMMENTS: Post-procedure pain: VAS= 0/10. If the patient receives at least 50% improvement in pain and/or function for at least 3 months, this procedure can be repeated if needed. I personally performed this entire procedure. SREEKANTH LONG DO, MPH ABPMR-subspecialty board certification in Pain Medicine [facility]
[2024-05-06] MEDS: methylPREDNISolone ACETATE 80 MG/ML VIAL IJ (11:53)
[2024-05-06] MEDS: Omnipaque 240 MG/ML 50 ML BTL IJ (11:53)
[2024-05-06] MEDS: Nerve Block Tray 1 EACH MC (11:54)
== END 2024-05-06 11:13 | disposition home or self-care (01) ==
LOC: PC 11:12
PROVIDERS: PCP Student in an Organized Health Care Education/Training Program; Visit Provider Preventive Medicine Occupational Medicine
DX: M54.50 Low back pain, unspecified (principal); M53.3 Sacrococcygeal disorders, not elsewhere classified
CPT/HCPCS: 27096; 72200; J1010; Q9967

== ENCOUNTER 2024-07-30 10:18 | Outpatient (CLI) | payer MEDICARE, SELFPAY ==
--- NOTE | 2024-07-30 10:15 | RT.EKG_ITS ---
APPROVED REPORT Exam: Resting ECG Reason for Exam: follow up Patient Location: O HR:58 bpm ECG Measurements Heart Rate 58 AXIS ID 179 P 26 QRSd 72 QRS -3 QT 432 T 12 QTc 425 Conclusion Sinus rhythm...normal P axis, V-rate 50- 99 Sinus arrhythmia
== END 2024-07-30 10:19 | disposition home or self-care (01) ==
PROVIDERS: PCP Student in an Organized Health Care Education/Training Program; Referring Provider Student in an Organized Health Care Education/Training Program; Visit Provider Internal Medicine Cardiovascular Disease
DX: R00.1 Bradycardia, unspecified (principal)
CPT/HCPCS: 93010

== ENCOUNTER → 2024-07-30 10:18 | Outpatient (BNVA) | payer MEDICARE, SELFPAY | PROVIDERS: PCP Student in an Organized Health Care Education/Training Program; Referring Provider Student in an Organized Health Care Education/Training Program; Visit Provider Internal Medicine Cardiovascular Disease | DX: R06.00 Dyspnea, unspecified (principal); I10 Essential (primary) hypertension; R94.31 Abnormal electrocardiogram [ECG] [EKG] | CPT/HCPCS: 93005; 99214 ==

== ENCOUNTER 2024-08-16 01:15 | Outpatient (CLI) | payer MEDICARE, SELFPAY ==
--- NOTE | 2024-08-16 06:45 | DI.NM_ITS ---
APPROVED REPORT Exam: Pharmacologic Patient Location: Out-Patient Room/Bed: Stress Nurse: Tyesha Terry RN Ordering Provider:AURY WETZEL, Contact Number: BMI: 29.99 Baseline Rhythm: Sinus Bradycardia Indications: SPENCE, HTN Medical History Medical History: Roy's esophagus, HTN, LIN, HLD, hypothyroidism, SPENCE, bradycardia, gastric ulcer, renal artery stenosis Cardiac Medications: amlodipine, aspirin, furosemide, levothyroxine, lisinopril, metoprolol succinate , pantoprazole Allergies: hydralazine Cardiac Risk Factors: family hx, HTN, HLD Previous Cardiac Procedures: none Pretest Chest Pain Characteristics: No chest pain Exercise History: Physically active Physical Disabilities: none Lung Sounds: Clear to auscultation Heart Sounds: Regular Stress Test Details Test: Pharmacologic stress testing performed using 0.4 mg of regadenoson per 5 mL given IV over 10 s econds. Reason for pharmacologic stress test: pt cannot hold prescribed metoprolol. Nuclear Acquisition: Rest Tc-99m/Stress Tc-99m 1 day Rest Isotope: Tc-99m Sestamibi. Dose: 10.0 Date: 08/16/2024 Stress Isotope: Tc-99m Sestamibi. Dose: 30.0 Date: 08/16/2024 Injection Time: 1246 HR Resting HR Supine: 53 bpm Max Heart Rate (APMHR): 141 bpm Resting HR Standin bpm Target HR (85% APMHR): 120 bpm Max HR Achieved: 108 bpm % of APMHR: 77 Recovery HR: 64 bpm HR response to stress: Normal HR response to stress BP Resting BP Supine: 186/82 mmHg Resting BP Standin/78 mmHg Max BP: 184/68 mmHg Recovery BP: 168/74 mmHg BP response to stress: Normal blood pressure response to stress. ECG Resting ECG: Sinus Bradycardia Ectopy: rare PACs, rare PVCs Stress ECG: Sinus Tachycardia ST Change: Nondiagnostic low heart rate Arrhythmia: rare PVCs, rare PACs Recovery ECG: Sinus Rhythm Recovery ST Change: Nondiagnostic low heart rate Recovery Arrhythmia: frequent PACs, frequent PVCs Clinical Stress Symptoms: Dyspnea Angina Score: None Rate Pressure Product: [id number] Stress ECG Conclusion 1. Resting electrocardiogram was normal 2. Patient underwent testing using a combination of low-level exercise and pharmacologic stress with regadenoson 3. Peak heart rate achieved was 77% of maximal predicted for age 4. The electrocardiographic portion of the test was nondiagnostic 5. See MPI report Stress Test Summary STAGE HR BP SpO2 Symptoms NOTES Supine 53 186/82 96 Standing 61 168/78 1 min post Lexiscan injection 108 moderate SOB 3 min post Lexiscan injection 90 172/64 moderate SOB 6 min post Lexiscan injection 73 184/68 headache, moderate SOB 9 min post Lexiscan injection 64 168/74 97 mild SOB, headache Pt left with a minor headache, all other symptoms resolved. MPI Conclusion Myocardial perfusion is normal. There is no ischemia or evidence of prior infarction Ejection fraction is 67% with normal wall motion
--- NOTE | 2024-08-16 09:30 | DI.US_ITS ---
APPROVED REPORT EXAM: Comprehensive 2D, Doppler, and color-flow Echocardiogram Patient Location: Out-Patient Investigative Reporter: Huan William RDCS (AE) Indications: SPENCE, BLE, HTN, check LV function Conclusion Normal left ventricular wall thickness and chamber size. Ejection fraction is 60 to 65%. Wall motio n is normal Normal right ventricular size and function Both atria are normal in size Aortic valve is trileaflet and minimally sclerotic without stenosis or regurgitation There is no additional significant valvular disease Wall motion Left Ventricle The left ventricle is normal size. The left ventricular systolic function is normal. The left ventric ular ejection fraction is within the normal range. There is normal left ventricular wall thickness. T here is normal LV segmental wall motion. There is no ventricular septal defect visualized. LVEF is 60 -65%. Right Ventricle The right ventricle is normal size. The right ventricular systolic function is normal. Atria The left atrium size is normal. The right atrium size is normal. The interatrial septum is intact wit h no evidence for an atrial septal defect. Aortic Valve The aortic valve is mildly sclerotic. Aortic valve is trileaflet. There is no aortic valvular stenosi s. Mitral Valve The mitral valve is normal in structure. No evidence of mitral valve stenosis. There is no mitral brenda ve regurgitation noted. Tricuspid Valve The tricuspid valve is normal in structure. There is no tricuspid valve stenosis. Trace tricuspid reg urgitation. Unable to assess PA pressure. Pulmonic Valve The pulmonary valve is normal in structure. There is no pulmonic valvular stenosis. Trace pulmonic re gurgitation. Great Vessels The aortic root is normal in size. The ascending aorta is normal in size. Aortic arch is normal in ca liber. IVC is normal in size and collapses >50% with inspiration. Pericardium There is no pericardial effusion. 2D Dimensions IVSD d PLAX 0.78 cm F: 0.6-1.0 Ao Root d 2.62 cm F: 2.7 - 3.3 LVPW d PLAX 0.80 cm F: 0.6 - 1.0 Ao Asc Diam d 3.04 cm F: 2.3 - 3.1 LVID d PLAX 5.18 cm F: 3.8 - 5.2 LVDs 3.41 cm F: 2.2 - 3.5 LV EF Teichholz 62.7 % FS 34.12 % LV EDV (Teich) 128.2 mL LV ESV (Teich) 47.8 mL Stroke Vol Index (Teich) 45.96 M-Mode TAPSE 2.78 cm (M/F) >1.7 Auto EF LV EDV A4C 93.8 mL LV EDV A2C 78.5 mL LV EDV BP 85.4 mL LV ESV A4C 32.7 mL LV ESV A2C 27.7 mL LV ESV BP 30.7 mL LVEF(%) A4C 65.1 % LVEF(%) A2C 64.8 % LVEF(%) BP 64.0 % LV SV A4C 61.1 ml LV SV A2C 50.9 ml LV SV BP 54.6 ml LV CO A4C 3.0 L/min LV CO A2C 2.3 L/min LV CO BP 2.7 L/min HR A4C 49.37 BPM HR A2C 46.16 BPM LV EDV Index (BP) LA Volume LA Length A4C 4.7 cm LA Length A2C 4.9 cm LA Area A4C s 12.43 cm2 LA Area A2C s 16.43 cm2 LA Vol A4C A-L 27.91 mL LA Vol A2C A-L 46.47 mL LA Vol Biplane A-L 36.9 mL LA Vol/BSA A4C A-L LA Vol/BSA A2C A-L LA Vol/BSA BP A-L 21.1 mL/m2 LA Vol A4C MOD 26.7 mL LA Vol A2C MOD 43.3 mL LA Vol BP MOD 34.5 mL RA Volume RA Area A4C 7.7 cm2 RA ESV A4C (A-L) 13.0mL RA Vol/BSA A4C A-L RA Length A4C 3.9 cm RA ESV A4C (MOD) 12.2mL LV Diastology MV E' medial 0.082 (>0.07 m/s) MV E Vmax 0.88 (0.4-1.3 m/s) MV E/E' MED 10.78 (<14) MV A Vmax 0.90 (0.4-1.3 m/s) MV E' lateral 0.067 (>0.1 m/s) E/A Ratio 1.0 MV E/E' LAT 13.24 (<14) MV E' Average 0.074 m/s MV E/E'(average) 11.89 Aortic Valve AoV Vmax 1.40 m/s LVOT Vmax 1.20 m/s AoV Peak Grad 7.9 mmHg LVOT Peak Grad 5.7 mmHg AoV Area (Vmax) 2.23 cm2 LVOT VTI 0.309 m AoV VTI 0.406 m LVOT Mean Grad 2.7 mmHg AoV Mean Olvin. 0.99 m/s LVOT SV 80.84 mL AoV Mean Grad 4.4 mmHg LVOT Diam s 1.80 cm AoV Area (VTI) 1.99 cm2 AV Regurg Peak Gr. 7.87 mmHg Velocity Ratio 0.86 Mitral Valve MV DT 198 (160-240 msec) Pulmonary Valve PV Vmax 0.84 (0.5-1.5 m/s) RVOT Vmax 0.55 m/s PV Peak Grad 2.8 mmHg RVOT Peak Gr. 1.2 mmHg PV Mean Olvin 0.57 m/s RVOT VTI 0.150 m PV Mean Grad 1.5 mmHg RVOT Mean Gr. 0.7 mmHg
[2024-08-16] MEDS: Regadenoson 0.4 MG/5 ML SYR IVP (12:46)
== END 2024-08-16 01:35 ==
LOC: DI 01:15
PROVIDERS: PCP Student in an Organized Health Care Education/Training Program; Visit Provider Internal Medicine Cardiovascular Disease
DX: R06.09 Other forms of dyspnea (principal); I10 Essential (primary) hypertension
CPT/HCPCS: 78452; 93016; 93018; 93306; 93017; J2785

== ENCOUNTER → 2024-08-17 14:09 | Outpatient (BNVA) | payer MEDICARE, SELFPAY | PROVIDERS: PCP Student in an Organized Health Care Education/Training Program; Referring Provider Student in an Organized Health Care Education/Training Program; Visit Provider Internal Medicine Cardiovascular Disease | DX: R06.00 Dyspnea, unspecified (principal); I10 Essential (primary) hypertension | CPT/HCPCS: 99213 ==

== ENCOUNTER → 2024-12-07 08:37 | Outpatient (BNVA) | payer MEDICARE, SELFPAY | PROVIDERS: PCP Student in an Organized Health Care Education/Training Program; Referring Provider Student in an Organized Health Care Education/Training Program; Visit Provider Podiatrist | DX: L60.0 Ingrowing nail (principal); I73.89 Other specified peripheral vascular diseases; I87.2 Venous insufficiency (chronic) (peripheral); M79.672 Pain in left foot | CPT/HCPCS: 11750 ==

== ENCOUNTER → 2024-12-30 08:18 | Outpatient (BNVA) | payer MEDICARE, SELFPAY | PROVIDERS: PCP Student in an Organized Health Care Education/Training Program; Referring Provider Student in an Organized Health Care Education/Training Program; Visit Provider Podiatrist | DX: L60.0 Ingrowing nail (principal); M79.672 Pain in left foot; I87.2 Venous insufficiency (chronic) (peripheral); I73.89 Other specified peripheral vascular diseases | CPT/HCPCS: 11750 ==

== ENCOUNTER → 2025-01-25 08:41 | Outpatient (BNVA) | payer MEDICARE, SELFPAY | PROVIDERS: PCP Student in an Organized Health Care Education/Training Program; Referring Provider Student in an Organized Health Care Education/Training Program; Visit Provider Podiatrist | DX: L60.0 Ingrowing nail (principal); I87.2 Venous insufficiency (chronic) (peripheral); I73.9 Peripheral vascular disease, unspecified | CPT/HCPCS: 99213 ==